=== PATIENT | male | born 1960 | race Caucasian/White ===

== ENCOUNTER 2020-07-07 10:00 | Outpatient (RCR) | payer OTHER, SELFPAY | END 2020-07-21 10:25 | disposition home or self-care (01) | LOC: HO.PTCHIC 10:00 | PROVIDERS: PCP General Practice; Visit Provider Emergency Medicine | DX: M50.00 Cervical disc disorder with myelopathy, unspecified cervical region (principal); Z87.828 Personal history of other (healed) physical injury and trauma | CPT/HCPCS: 95992; 97012; 97014; 97110; 97140; 97162 ==

== ENCOUNTER 2020-07-28 12:53 | Outpatient (REF) | payer OTHER, SELFPAY ==
--- NOTE | 2020-07-28 12:57 | CT_ITS ---
EXAMINATION: CT CERVICAL SPINE WITHOUT CONTRAST CLINICAL INFORMATION: Neck pain. Cervical disorder. COMPARISON: C-spine x-ray 01/09/2020. TECHNIQUE: Axial 3 mm thin and reformatted 2 mm thin sagittal and coronal images of cervical spine were obtained without contrast. This CT examination was performed using dose optimization techniques as appropriate, variously including the following: *Automated exposure control *Adjustment of mA and/or kV according to patient size (this includes techniques or standardized protocols for targeted exams where dose is matched to indication/reason for exam; i.e. extremities or head) *Use of iterative reconstruction technique DLP: 409 mGy-cm FINDINGS: On sagittal reconstructed images there is maintained cervical lordosis. There is loss of C3-C4, C4-C5, C5-C6 and C6-C7 disc heights with mild posterior cervical spondylosis at C3-C4 and C6-C7 disc levels. The vertebral heights and alignment are normal. The craniovertebral and C1-C2 alignment is normal. No visible acute fracture, dislocation or subluxation seen. The C2-C3 disc level is unremarkable. At C3-C4 disc level there is mild right uncovertebral hypertrophic change narrowing the neural foramina. The left neural foramina is patent. There is mild posterior spondylosis with mild spinal canal stenosis. At C4-C5 disc level there is posterior spondylosis/bulge complex resulting in mild spinal canal stenosis. There is mild left neural foramina narrowing from uncovertebral hypertrophic change. The right neural foramina is patent. At C5-C6 disc level there is mild posterior spondylosis without disc herniation or spinal stenosis. The neural foramina are patent. At C6-C7 disc level there is mild posterior spondylosis with mild AP canal stenosis. The neural foramina are moderately narrowed from bilateral uncovertebral hypertrophic changes. The C7-T1 disc level is unremarkable. There is no lytic or sclerotic process seen. The paravertebral soft tissues are normal. There is emphysema with small bilateral apical bullae. Thyroid lobes are symmetrical and normal. The central trachea is widely patent. No abnormal-sized neck lymph node or mass seen. CT/CT cervical spine wo con IMPRESSION: Degenerative disc changes with spondylosis C3-C4 through C6-C7 disc levels. Mild spinal canal stenosis C4-C5 and C6-C7 disc levels from combination of disc bulge/complex. Mild neural foraminal narrowing from uncovertebral hypertrophic changes as described above.
== END 2020-07-28 12:54 | disposition home or self-care (01) ==
LOC: HO.CT 12:53
PROVIDERS: Visit Provider General Practice
DX: M50.00 Cervical disc disorder with myelopathy, unspecified cervical region (principal)
CPT/HCPCS: 72125

== ENCOUNTER → 2020-09-03 09:30 | Outpatient (REF) | payer OTHER, SELFPAY ==
--- NOTE | 2020-09-03 09:30 | CA_ITS ---
Transthoracic Echocardiogram Patient (Last, First, Middle): Ld Workman J Gender: Male Date of : 1960 Age: 60 Procedure Date: 09/03/2020 Procedure Type: Transthoracic Echocardiogram Location: OP Height: 185.42 cm Weight: 70.31 kg BSA: 1.93 m2 Heart Rate: bpm BP: 130 / 80 mmHg Auto Body Mechanic: OSMANY Referring MD: Jericho Ribeiro MD Symptoms: I35.1 NONRHEUMATIC AV INSUFF Study Quality: Good Conclusions: - Normal left ventricular size and systolic function. - Normal right ventricular cavity size and systolic function. - There is mild aortic valve stenosis. There is mild to moderate aortic valve regurgitation. - There is mild dilatation of the ascending aorta. Findings Left Ventricle Normal left ventricular size and systolic function. There is mildly increased left ventricular wall thickness. The visually estimated ejection fraction is between 65-70%. There is no evidence of regional wall motion abnormalities. Diastolic function is normal for age. Right Ventricle Normal right ventricular cavity size and systolic function. Atria Both atria are normal in size. Aortic Valve There is moderate calcification of the aortic valve. There is moderate thickening of the aortic valve. There is mild aortic valve stenosis. There is mild to moderate aortic valve regurgitation. Mitral Valve Normal mitral valve structure and function. There is no mitral valve regurgitation. There is no mitral valve stenosis. Pulmonic Valve Normal pulmonic valve structure and function. There is trace pulmonic valve regurgitation. Tricuspid Valve Normal tricuspid valve structure and function. There is trace tricuspid valve regurgitation. Normal right atrial pressure. There is no evidence of pulmonary hypertension. Great Vessels There is mild dilatation of the ascending aorta. The visualized portions of the pulmonary artery and branches are normal. Venous The inferior vena cava is normal in size and collapses greater than 50% with inspiration. Pericardium/Pleural There is no evidence of pericardial effusion. Prior Study Comparison Changes noted compared to prior study dated: 08/06/2019. Mild present. Mild to moderate AR present. Measurements 2D Linear Measurements IVSd: 1.08 0.6-0.9/0.6-1.0 cm LVIDd: 4.61 3.9-5.3/4.2-5.9 cm LVIDs: 2.94 2.0-3.6 cm LVPWd: 1.10 0.7-1.1 cm Ao Root: 4.10 2.1-3.5 cm LV Mass: 223.56 67-162/88-224 g LVOT Diam: 2.25 3.0+(-)1.3 cm Mitral Valve MV Pk E: 0.56 MV PK A: 0.47 MV Decel Time: 265.85 E/A: 1.19 E'Lateral: 0.10 E'Medial: 0.07 Decel Coleman: 2.12 Aortic Valve AoV Pk Kofi: 1.32 AoV Mn Kofi: 0.90 AoV VTI: 0.29 AoV Pk Grad: 7.02 Aov Mn Grad: 3.70 LVOT LVOT Pk Kofi: 1.43 LVOT Mn Kofi: 0.93 LVOT VTI: 0.27 LVOT Pk Grad: 8.17 LVOT Mn Grad: 4.07 LVOT Diam: 2.25 LVOT Area: 3.97 Diastolic Function MV Pk E: 0.56 MV Pk A: 0.47 E/A: 1.19 E'Medial: 0.07 E' Laterial: 0.10 Tricuspid Valve TR Pk Kofi: 2.21 TR Pk Grad: 19.49 RA Press: 3.00 RVSP: 22.00 Great Vessels Aorta Ao Root-2D: 4.10 2.0-3.7 cm Ao Asc: 3.57 2.1-3.4 cm Updated in Other Vendor System with Status of Final Baljinder Cash MD electronically signed on 09/05/2020 4:30:25 PM with status of Final
== END ==
LOC: HO.CARD 09:30
PROVIDERS: Visit Provider Internal Medicine
DX: I35.1 Nonrheumatic aortic (valve) insufficiency (principal)
CPT/HCPCS: 93306

== ENCOUNTER → 2020-09-21 08:46 | Outpatient (BNVA) | payer OTHER, SELFPAY | PROVIDERS: PCP Nurse Practitioner Family; Visit Provider Internal Medicine | DX: I25.10 Atherosclerotic heart disease of native coronary artery without angina pectoris (principal); I35.1 Nonrheumatic aortic (valve) insufficiency | CPT/HCPCS: 93005; 99212 ==

== ENCOUNTER 2020-12-24 06:14 | Outpatient (REF) | payer OTHER, SELFPAY ==
--- NOTE | ~2020-12-24 | XR_ITS ---
EXAMINATION: XR HAND, RIGHT CLINICAL INFORMATION: Chondrocalcinosis. COMPARISON: Right hand radiographs dated 12/28/2016 and 02/18/2015. TECHNIQUE: PA, lateral, and oblique views of the right hand. An arrow points to the second metacarpophalangeal joint. FINDINGS: Mild distal interphalangeal degenerative joint changes are seen. There is no acute fracture or dislocation. Nonacute deformity is again seen in the distal aspect of the fifth metacarpal. A small osseous density seen along the radial base of the proximal phalanx of the second digit without significant change dating back to 2014. The carpal bones are normally aligned. The distal radius and ulna are intact. The soft tissues are unremarkable. XR/XR hand RT min 3V IMPRESSION: Mild distal interphalangeal degenerative joint changes suggesting osteoarthritis. No significant acute/new abnormality.
== END 2020-12-24 06:15 | disposition home or self-care (01) ==
LOC: HO.XRAY 06:14
PROVIDERS: PCP General Practice; Referring Provider General Practice; Visit Provider Emergency Medicine
DX: M11.20 Other chondrocalcinosis, unspecified site (principal); M79.641 Pain in right hand
CPT/HCPCS: 73130

== ENCOUNTER 2021-03-10 08:15 | Outpatient (REF) | payer OTHER, SELFPAY | END 2021-03-10 08:16 | disposition home or self-care (01) | LOC: HO.NEURO 08:15 | PROVIDERS: Visit Provider Emergency Medicine | DX: Z13.89 Encounter for screening for other disorder (principal) ==

== ENCOUNTER → 2021-10-27 07:09 | Outpatient (REF) | payer OTHER, SELFPAY ==
--- NOTE | 2021-10-27 07:12 | CA_ITS ---
Transthoracic Echocardiogram Patient (Last, First, Middle): Ld Workman J Gender: Male Date of : 1960 Age: 61 Procedure Date: 10/27/2021 Procedure Type: Transthoracic Echocardiogram Location: OP Height: 180.34 cm Weight: 65.77 kg BSA: 1.84 m2 Heart Rate: bpm BP: 126 / 68 mmHg Strip Polisher: PERLA Referring MD: Jericho Ribeiro MD Etcher Apprentice: Bigg Kelsey MD Symptoms: I35.1 - Nonrheumatic aortic (valve) insufficiency Study Quality: Good ECG Rhythm: Sinus Conclusions: - 1. Normal LV systolic function with mild LVH with grade 1 diastolic dysfunction 2. Mildly dilated left atrium 3. Mild aortic stenosis and [id number] aortic regurgitation 4. Normal RV systolic pressure 5. No pericardial effusion Findings Left Ventricle Normal left ventricular size, thickness, and systolic function. The visually estimated ejection fraction is between 65-70%. There is no evidence of regional wall motion abnormalities. Spectral Doppler is indicative of an impaired relaxation filling pattern. E/E prime ratio is <8, consistent with normal filling pressures. Evidence suggests grade I (mild) diastolic dysfunction. Right Ventricle Normal right ventricular cavity size and systolic function. Atria The left atrium is mildly dilated. There is no evidence of interatrial shunt. The right atrium is normal in size. Aortic Valve There is moderate calcification of the aortic valve. There is moderate thickening of the aortic valve. There is mild aortic valve stenosis. The mean gradient is 10 mmHg. There is mild to moderate aortic valve regurgitation. bicuspid aortic valve cannot be entirely ruled out Mitral Valve Normal mitral valve structure and function. There is trace mitral valve regurgitation. There is no mitral valve stenosis. Pulmonic Valve The pulmonic valve is likely normal. Tricuspid Valve Normal tricuspid valve structure. There is trace tricuspid valve regurgitation. The right ventricular systolic pressure is normal. Normal right atrial pressure. There is no evidence of pulmonary hypertension. Great Vessels All visible segments of the aorta are normal in size. The pulmonary artery was not well visualized. Venous The inferior vena cava is normal in size and collapses greater than 50% with inspiration. Pericardium/Pleural There is no evidence of pericardial effusion. Prior Study Comparison No significant change compared to prior study dated: 09/03/2020. Measurements 2D Linear Measurements IVSd: 1.06 0.6-0.9/0.6-1.0 cm LVIDd: 4.38 3.9-5.3/4.2-5.9 cm LVIDd Index: 2.38 2.4-3.2/2.2-3.1 cm/m2 LVIDs: 2.39 2.0-3.6 cm LVPWd: 1.09 0.7-1.1 cm LA Diam: 3.60 2.7-3.8/3.0-4.0 cm LAIDs Index: 1.96 1.5-2.3 cm/m2 LV Mass: 202.19 67-162/88-224 g LV Mass Index: 109.89 43-95/49-115 g/m2 LVOT Diam: 2.20 3.0+(-)1.3 cm 2D Systolic Function EF 4C: 67.80 >55% EF 2C: 69.40 >55% EF BiP: 66.80 >55% Mitral Valve MV Pk E: 0.60 MV PK A: 0.65 MV Decel Time: 286.00 E/A: 0.90 E'Lateral: 11.40 E'Medial: 7.07 E/E' Med: 8.50 E/E' Lat: 5.30 PHT: 84.00 MVA PHT: 2.62 Decel [place]: 2.09 Aortic Valve AoV Pk Kofi: 2.18 AoV Mn Kofi: 1.43 AoV VTI: 0.48 AoV Pk Grad: 19.00 Aov Mn Grad: 10.00 CHANI Cont.VTI: 2.22 AI Pk Kofi: 4.62 AI [place]: 2.19 LVOT LVOT Pk Kofi: 1.22 LVOT Mn Kofi: 0.84 LVOT VTI: 0.28 LVOT Pk Grad: 6.00 LVOT Mn Grad: 3.00 LVOT Diam: 2.20 LVOT Area: 3.80 Diastolic Function MV Pk E: 0.60 MV Pk A: 0.65 E/A: 0.90 E'Medial: 7.07 E/E' Med: 8.50 E' Laterial: 11.40 E/E' Lat: 5.30 Right Ventricle TAPSE (mm): 2.50 TVS' Kofi: 14.30 Tricuspid Valve TR Pk Kofi: 1.64 TR Pk Grad: 11.00 RA Press: 3.00 RVSP: 14.00 Great Vessels Aorta Sinus of Valsalva: 3.74 2.0-3.[address] [place]: 3.03 1.7-3.4 cm Ao Asc: 3.60 2.1-3.4 cm Updated in Other Vendor System with Status of Final Bigg Kelsey MD electronically signed on 10/28/2021 2:44:27 PM with status of Final
== END ==
LOC: HO.CARD 07:09
PROVIDERS: PCP Family Medicine; Visit Provider Internal Medicine
DX: I35.1 Nonrheumatic aortic (valve) insufficiency (principal)
CPT/HCPCS: 93306

== ENCOUNTER → 2021-11-22 13:53 | Outpatient (BNVA) | payer OTHER, SELFPAY | PROVIDERS: PCP Family Medicine; Referring Provider Family Medicine; Visit Provider Internal Medicine | DX: I25.10 Atherosclerotic heart disease of native coronary artery without angina pectoris (principal); I35.1 Nonrheumatic aortic (valve) insufficiency; I35.0 Nonrheumatic aortic (valve) stenosis | CPT/HCPCS: 93005; 99212 ==

== ENCOUNTER 2022-03-27 09:00 | Outpatient (RCR) | payer OTHER, SELFPAY | END 2022-03-27 15:40 | disposition home or self-care (01) | LOC: HO.OT 09:00 | PROVIDERS: Visit Provider Physician Assistant | DX: G56.02 Carpal tunnel syndrome, left upper limb (principal) | CPT/HCPCS: 97035; 97110; 97140; 97166 ==

== ENCOUNTER 2022-04-27 14:27 | Outpatient (REF) | payer OTHER, SELFPAY ==
--- NOTE | ~2022-04-27 | US_ITS ---
EXAMINATION: US VENOUS ULTRASOUND WITH DOPPLER LOWER EXTREMITY, RIGHT CLINICAL INFORMATION: Right lower extremity pain. COMPARISON: None TECHNIQUE: Ultrasound of the deep veins is performed from the hip to the calf with compression sonography and color and pulse Doppler assessment. Spectral analysis with color-flow imaging is performed. FINDINGS: There is normal venous compression and respiratory variation and augmented flow. The visualized common femoral vein, superficial femoral vein, profunda femoral vein, popliteal vein, and the trifurcation region shows no evidence of deep venous thrombosis. There is no significant popliteal fossa cyst. No focal abnormality identified in the region of concern of the posterior calf. If the patient's symptoms persist, followup ultrasound in 5 days 7 days might be of value to exclude proximal propagation from a non-visualized calf vein. US/US venous duplex LE RT IMPRESSION: No DVT demonstrated in the right lower extremity.
--- NOTE | ~2022-04-27 | XR_ITS ---
EXAMINATION: XR KNEE, RIGHT CLINICAL INFORMATION: Pain. COMPARISON: None TECHNIQUE: AP, lateral and sunrise views of the right knee are submitted. FINDINGS: There is mild bony demineralization. There is very mild asymmetric narrowing of the medial joint space compartment, with minimal peripheral osteophyte formation. The lateral and patellofemoral joint space compartments are well-maintained. No varus or valgus configuration is seen. No fracture, dislocation or significant joint effusion is seen. A small degenerative calcification is seen of the patellar tendon insertion. No foreign body is seen. There are mild femoral, popliteal and infrapopliteal atherosclerotic calcifications. XR/XR knee RT 3V IMPRESSION: There is very mild osteoarthritic change of the medial joint space compartment of the right knee. No significant varus or valgus configuration is noted.
== END 2022-04-27 14:28 | disposition home or self-care (01) ==
LOC: HO.US 14:27
PROVIDERS: Absent Provider Family Medicine; PCP Family Medicine; Visit Provider Emergency Medicine
DX: M79.661 Pain in right lower leg (principal); M25.561 Pain in right knee
CPT/HCPCS: 73562; 93971

== ENCOUNTER 2022-05-30 | Outpatient (REF) | payer OTHER, MEDICAID, SELFPAY ==
--- NOTE | ~2022-05-30 | XR_ITS ---
EXAMINATION: XR KNEE AP STANDING CLINICAL INFORMATION: Knee pain. COMPARISON: None TECHNIQUE: AP bilateral standing view of the knees was obtained. [place] view of the right patella was obtained as well. XR/XR knee standing BI FINDINGS/IMPRESSION: On the left, chondrocalcinosis is seen. There are mild degenerative changes involving the medial compartment, with joint space narrowing, sclerosis, and mild osteophyte formation. On the right, mild joint space narrowing involves the medial compartment. [place] view on the right appears unremarkable. No fracture or dislocation is seen. Bony mineralization appears preserved. No lytic or sclerotic bony lesion is appreciated.
--- NOTE | ~2022-05-30 | XR_ITS ---
EXAMINATION: XR KNEE AP STANDING CLINICAL INFORMATION: Knee pain. COMPARISON: None TECHNIQUE: AP bilateral standing view of the knees was obtained. [place] view of the right patella was obtained as well. XR/XR knee RT 1V FINDINGS/IMPRESSION: On the left, chondrocalcinosis is seen. There are mild degenerative changes involving the medial compartment, with joint space narrowing, sclerosis, and mild osteophyte formation. On the right, mild joint space narrowing involves the medial compartment. [place] view on the right appears unremarkable. No fracture or dislocation is seen. Bony mineralization appears preserved. No lytic or sclerotic bony lesion is appreciated.
== END 2022-05-30 00:01 | disposition home or self-care (01) ==
LOC: HO.HOSX
PROVIDERS: Visit Provider Physician Assistant
DX: M23.91 Unspecified internal derangement of right knee (principal)
CPT/HCPCS: 73560; 73565; 99202

== ENCOUNTER 2022-06-14 13:00 | Outpatient (RCR) | payer OTHER, SELFPAY ==
--- NOTE | 2022-06-07 09:46 | MHC.PT.EP ---
[facility] [place] Office [place] Office [place] Office [address] [phone] F: [phone] F: [phone] F: [phone] F: [phone] Physical Therapy Plan of Care Date of Evaluation: Date of Surgery: none Diagnosis: Internal derangement of R knee. Assessment: Patient is a 62 year old R handed male who presents with s/s consistent with R knee pain after a pop while squatting 1 month ago. 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 Patient past medical history includes stent placement. Current impairments include pain, posture, ROM, strength, activity tolerance, flexibility, and functional mobility. Functional limitations include decreased ability to squat, kneel and negotiate stairs. Patient is motivated with good rehab potential. Skilled PT will address impairments and functional limitations in order to achieve goals. Frequency and Duration: The patient will be seen 2x/week for 5 weeks Short Term Goals: I with HEP - 2 weeks Full pain free AROM - 3 weeks Quad set normal - 3 weeks Manager Rn Goals: Strength 4+/5 flex/ext - 5 weeks LEFS 66/80 - 5 weeks HS 90/90 lacking <20 b/l. Treatment Plan: Modalities to reduce pain, spasms and effusion. Manual therapy to restore motion and function. Therapeutic exercise to improve strength and flexibility. Neuromuscular re-education for posture and balance. Therapeutic activities to return to functional activities of daily living. Electronically signed by: Tru Eng PT Please sign and return to therapist. Thank you for your referral.
--- NOTE | 2022-09-01 08:40 | MHC.PT.DC ---
[facility] [place] Office [place] Office [place] Office [address] [place] [address] [phone] F: [phone] F: [phone] F: [phone] F: [phone] Physical Therapy Discharge Report Diagnosis: Internal derangement of R knee. Date of Surgery: none Date of Evaluation: 06/07/22 Date of Discharge: 07/03/22 Treatments to Date: 2 Cancellations to Date: No Shows to Date: Discharge Status: Patient Elected to Stop Discharge Summary: Pt with increased discomfort since trying HEP. notes back and L knee pain as well. we discussed HEP and decided to hold on HEP until next visit where we will assess presentation and attempt to pursue goals with alternative methods. Patient is a 62 year old R handed male who presents with s/s consistent with R knee pain after a pop while squatting 1 month ago. 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 Patient past medical history includes stent placement. Current impairments include pain, posture, ROM, strength, activity tolerance, flexibility, and functional mobility. Functional limitations include decreased ability to squat, kneel and negotiate stairs. Patient is motivated with good rehab potential. Skilled PT will address impairments and functional limitations in order to achieve goals. Electronically signed by: Tru Eng, PT Please sign and return to therapist. Thank you for your referral.
== END 2022-09-01 08:40 | disposition home or self-care (01) ==
LOC: HO.PTCHIC 13:00
PROVIDERS: PCP Family Medicine; Visit Provider Physician Assistant
DX: M23.91 Unspecified internal derangement of right knee (principal)
CPT/HCPCS: 97110; 97161

== ENCOUNTER 2023-01-12 10:30 | Outpatient (AMB) | payer OTHER, SELFPAY ==
--- NOTE | 2023-01-12 10:35 | A.OFFVIS_ITS ---
Intake Vital Signs 01/12/23 10:35 01/12/23 10:37 Height 6 ft 6 ft Weight 135 lb 12.876 oz BMI 18.4 BP 120/60 Blood Pressure Location Lt brachial Position Sitting Pulse 65 Intake Visit Reasons: 1 year follow up Intake Note: 1 year follow up Web User Experience Strategist Required: No Accompanied by: Self / Same As Patient Allergies No Known Allergies [No Known Allergies*] Allergy (Verified 01/12/23 10:39) Medication List - Last Reconciled 01/12/23 by Jericho Ribeiro MD aspirin 81 mg PO DAILY atorvastatin 80 mg PO DAILY celecoxib 200 mg PO DAILY famotidine 40 mg PO DAILY metoprolol tartrate 25 mg PO BID aosxomackyie-udoq-gfceu acid 18-400 mg-mcg (Certavite-Antioxidant) 0 tabs PO nitroglycerin 0 mg sublingual HPI HPI Comments History of Present Illness Details Ld returns for follow-up regarding coronary disease and aortic regurgitation. To recall, he has a history of inferior STEMI from 2011. He received bare metal stent to the mid circumflex. Overall, doing good. No specific complaints. No angina absolutely. [facility] Medical History Atherosclerotic cardiovascular disease Non-rheumatic aortic stenosis Nonrheumatic aortic valve regurgitation Personal history of nicotine dependence ST elevation myocardial infarction (STEMI) of inferior wall Surgical History History of foot surgery (~10/2013) History of heart artery stent (~04/2012) History of left inguinal hernia repair (~03/2016) History of right inguinal hernia repair (~04/2015) Family History Father CVD (cardiovascular disease) Mother CVD (cardiovascular disease) Social History Patient Tobacco Use Status: Former Tobacco user Review of Systems Const Denies weakness ENT Denies dizziness Card Denies chest pain, Denies chest pain with activity, Denies syncope, Denies rapid heart rate, Denies pedal edema, Denies edema, Denies leg edema, Denies lightheadedness, Denies palpitations, Denies dyspnea, Denies dyspnea on exertion and Denies orthopnea Resp Denies cough, Denies dyspnea and Denies dyspnea on exertion GI Denies hematochezia and Denies change in stool character Musc Denies abnormal gait, Denies muscle cramps, Denies muscle weakness, Denies numbness, Denies radiating pain into limb and Denies tingling Neuro Denies abnormal gait, Denies dizziness, Denies syncope, Denies numbness, Denies tingling and Denies weakness Endo Denies palpitations Physical Exam Vital Signs: Last Vital Signs Pulse 65 01/12/23 10:37 BP 120/60 01/12/23 10:37 BMI result Body Mass Index 18.4 Const General: comfortable and no acute distress Orientation/consciousness: patient oriented x3 HEENT Other: Unremarkable Head: Yes normal to inspection Neck Neck: Yes normal visual inspection Chest Chest palpation & inspection: normal inspection of the chest Resp Auscultation: clear to auscultation bilaterally Cardio Palpation: normal PMI Heart sounds: S1 normal heart sound present, S2 normal heart sound present, no gallops, Murmur heart sound present systolic II/ and at the apex and no rubs GI Palpation (GI): Soft to palpation Back/Spine/Pelvis Other: unremarkable Skin General skin exam: no rashes or lesions noted Neuro General: patient oriented x3 Extrem General: Yes normal to inspection Psych Mental Status: mental status grossly normal Office Procedures EKG Details: EKG with sinus rhythm at 65/Min; no significant ST-T changes and otherwise unremarkable. [place]. [id number], Complete Assessment & Plan Assessment & Plan (1) Atherosclerotic cardiovascular disease: Code(s): I25.10 - Atherosclerotic heart disease of nome coronary artery without angina pectoris Plan: Continue aspirin, metoprolol, and statins. Need to request last lipids from PCP. In the past it was quite controlled and LDL 45 mg/dL; triglycerides 36 mg/dL. (2) Nonrheumatic aortic valve regurgitation: Code(s): I35.1 - Nonrheumatic aortic (valve) insufficiency Plan: Echocardiogram with vocz-qc-ekfpoutc aortic regurgitation. Monitor perio dically. (3) Non-rheumatic aortic stenosis: Code(s): I35.0 - Nonrheumatic aortic (valve) stenosis Plan: In the last echocardiogram, could not exclude bicuspid aortic valve. There was moderate thickening of the valve. Mean gradient across the aortic valve was 10 mm Hg and thought to have mild stenosis. Ascending aortic size was 3.6 cm. We can monitor this periodically. Coding Level of Care Code Est Pt Level 3 (64146) Diagnoses Atherosclerotic cardiovascular disease I25.10 Nonrheumatic aortic valve regurgitation I35.1 Non-rheumatic aortic stenosis I35.0 CPT Codes EKG - CPT: 82001-[id number], Complete ([id number])
[2023-01-12 10:37] VITALS: BP 120/60; PULSE 65; BMI 18.4
== END 2023-01-12 11:05 | disposition home or self-care (01) ==
PROVIDERS: PCP Family Medicine; Visit Provider Internal Medicine
DX: I25.10 Atherosclerotic heart disease of native coronary artery without angina pectoris (principal); I35.1 Nonrheumatic aortic (valve) insufficiency; I35.0 Nonrheumatic aortic (valve) stenosis
CPT/HCPCS: 93010; 99213

== ENCOUNTER → 2023-01-12 10:30 | Outpatient (BNVA) | payer OTHER, SELFPAY | PROVIDERS: PCP Family Medicine; Visit Provider Internal Medicine | DX: I25.10 Atherosclerotic heart disease of native coronary artery without angina pectoris (principal); I35.0 Nonrheumatic aortic (valve) stenosis; I35.1 Nonrheumatic aortic (valve) insufficiency; Z79.82 Long term (current) use of aspirin; Z79.899 Other long term (current) drug therapy | CPT/HCPCS: 93005; 99212 ==

== ENCOUNTER 2023-08-14 09:53 | Outpatient (REF) | payer OTHER, SELFPAY ==
--- NOTE | ~2023-08-14 | XR_ITS ---
EXAMINATION: XR KNEE, LEFT CLINICAL INFORMATION: Left knee pain and edema for 5 years. COMPARISON: 05/30/2022 TECHNIQUE: Five views of the left knee. FINDINGS: Mild medial joint space narrowing. Moderate joint effusion. Tiny medial marginal and posterior patellar osteophytes. Chondrocalcinosis in the lateral compartment and possibly minimally in the medial compartment. XR/XR knee LT 4V IMPRESSION: Moderate joint effusion. Mild degenerative changes.
== END 2023-08-14 09:54 | disposition home or self-care (01) ==
LOC: HO.HHCX 09:53
PROVIDERS: Visit Provider Internal Medicine
DX: M17.12 Unilateral primary osteoarthritis, left knee (principal)
CPT/HCPCS: 73564

== ENCOUNTER 2023-10-12 07:00 | Outpatient (REF) | payer OTHER, SELFPAY ==
--- NOTE | ~2023-10-12 | CT_ITS ---
EXAMINATION: CT KNEE WITHOUT CONTRAST, LEFT CLINICAL INFORMATION: Severe medial knee pain. COMPARISON: X-ray 08/14/2023. TECHNIQUE: Axial imaging. Sagittal and coronal reconstructions. This CT examination was performed using dose optimization techniques as appropriate, variously including the following: *Automated exposure control *Adjustment of mA and/or kV according to patient size (this includes techniques or standardized protocols for targeted exams where dose is matched to indication/reason for exam; i.e. extremities or head) *Use of iterative reconstruction technique DLP: 155 mGy-cm FINDINGS: Alignment is anatomic. Mild-moderate medial compartment joint space narrowing, marginal osteophytes, sclerosis. Tiny marginal patellar spurs. Chondrocalcinosis in the lateral compartment. Small calcifications in the medial compartment adjacent to the femoral condyle, could reflect chondrocalcinosis or loose bodies. Small sclerotic focus in the distal femoral metaphysis, appears nonaggressive, probable bone island. No evidence of acute fracture. Small effusion. Quadriceps and patellar tendon grossly appear intact. The ligaments, intra-articular soft tissues are not reliably evaluated. No gross muscle tear is seen, evaluation limited by CT. There is subcutaneous edema anteriorly. CT/CT knee LT wo IV con IMPRESSION: Mild-moderate medial compartment arthritis. Chondrocalcinosis/loose bodies. No CT evidence of acute fracture or malalignment. Small effusion. Consider MRI evaluation if there is clinical concern for radiographically occult osseous injury, intra-articular derangement.
== END 2023-10-12 07:01 | disposition home or self-care (01) ==
LOC: HO.CT 07:00
PROVIDERS: PCP Family Medicine; Visit Provider Family Medicine
DX: M25.562 Pain in left knee (principal); G89.29 Other chronic pain
CPT/HCPCS: 73700

== ENCOUNTER 2023-10-25 09:16 | Outpatient (REF) | payer OTHER, SELFPAY ==
--- NOTE | ~2023-10-25 | XR_ITS ---
EXAMINATION: XR KNEE AP STANDING CLINICAL INFORMATION: Pain in unspecified knee. COMPARISON: None available. TECHNIQUE: AP bilateral standing view of the knees was obtained. FINDINGS: The bones are diffusely demineralized. Yfiogsvn-bq-oryupt narrowing of the medial compartment of bilateral knees, left greater than right. Small medial marginal osteophytes. Possible faint chondrocalcinosis in the lateral compartment of the left knee. XR/XR knee standing BI IMPRESSION: 1. Yqummwyp-jv-sbrjbn narrowing of the medial compartment of bilateral knees, left greater than right.
== END 2023-10-25 09:17 | disposition home or self-care (01) ==
LOC: HO.HOSX 09:16
PROVIDERS: Visit Provider Physician Assistant
DX: M17.12 Unilateral primary osteoarthritis, left knee (principal)
CPT/HCPCS: 73565; 99212

== ENCOUNTER 2023-10-25 11:52 | Outpatient (AMB) | payer OTHER, SELFPAY ==
--- NOTE | 2023-10-25 12:27 | A.OFFVIS_ITS ---
Intake Visit Reasons: New Problem Left knee pain Intake Note: Ld is a 64 year old male who presents today for a evaluation of his left knee pain. Patient reports his pain started about 3 months ago. Hx of 2 surgeries when he was a kid for torn cartilage. He expresses that his pain is worse when he is bending his knee. Patient reveals when he bends his knee he feels a pulling sensation on his thigh. Patient doesn't find relief when he takes Tylenol. Allergies No Known Allergies [No Known Allergies*] Allergy (Verified 10/25/23 12:34) HPI HPI New Problem Left knee pain: Details: 63-year-old male who presents in the office today for an evaluation of left knee pain. Patient reports his pain began about 3 months ago. Claims to have an increase in pain when bending his left knee. Reports a pulling sensation in his left thigh when bending the knee. Confirms the use of Tylenol but does not get relief. Patient states the top and back of the knee feels like it is pulling. He reports edema and that it feels squishy. Confirms increased pain with walking up stairs. He confirms taking Celebrex 200 mg PO daily. Patient has a history of 2 surgeries as a child for torn cartilage. Patient denies kidney complications. [facility] Medical History Atherosclerotic cardiovascular disease Non-rheumatic aortic stenosis Nonrheumatic aortic valve regurgitation Personal history of nicotine dependence ST elevation myocardial infarction (STEMI) of inferior wall Surgical History History of foot surgery (~10/2013) History of heart artery stent (~04/2012) History of left inguinal hernia repair (~03/2016) History of right inguinal hernia repair (~04/2015) Family History Father CVD (cardiovascular disease) Mother CVD (cardiovascular disease) Social History (Updated 10/25/23 @ 12:36 by Lai De La Vega) Patient Tobacco Use Status: Former Tobacco user Current occupational status: retired Review of Systems Const All systems reviewed & are unremarkable except as noted in HPI and below Physical Exam Const General: cooperative, healthy appearing and no acute distress Resp Effort & Inspection: normal respiratory effort and able to speak in complete sentences Cardio Rate: regular rate Peripheral pulses: Peripheral pulses 2+ throughout GI Palpation (GI): Soft to palpation Skin Lesions: no lesions Rashes: no rashes Extrem Other: Left knee: Normal to inspection. No ecchymosis, erythema, or joint effusion. No tenderness to palpation along the lateral joint line. Tenderness to palpation along the medial joint line. Full knee extension and flexion. Crepitus felt with ROM. Negative Nilo's. Negative anterior drawer. NVI. Assessment & Plan Assessment & Plan (1) Osteoarthritis of left knee: Code(s): M17.12 - Unilateral primary osteoarthritis, left knee Category: Medical Qualifiers: Osteoarthritis type: unspecified Qualified Code(s): M17.12 - Unilateral primary osteoarthritis, left knee Plan Mr. Workman is a 63-year-old male who presents in the office today for an evaluation of left knee pain. Patient reports his pain began about 3 months ago. Claims to have an increase in pain when bending his left knee. Reports a pulling sensation in his left thigh when bending the knee. Confirms the use of Tylenol but does not get relief. Patient states the top and back of the knee feels like it is pulling. He reports edema and that it feels squishy. Confirms increased pain with walking up stairs. He confirms taking Celebrex 200 mg PO daily. Patient has a history of 2 surgeries as a child for torn cartilage. Patient denies kidney complications. Discussed the role of oral anti-inflammatory or cortisone injections. At this time the patient states he is not interested in the cortisone injection due to a phobia of needles. I will send in a prescription for Celebrex 200 mg PO twice daily. He will be placed in a genumed knee brace, off the shelf. Follow up will be PRN, or sooner if needed. X-rays of the left knee which were obtained while in the office today and were reviewed by me, Ethel Cruz PA-C, revealed no acute fracture or dislocation. Osteoarthritis noted. Orders: Orders XR knee standing BI Today M25.569 - Pain in unspecified knee Medications: New celecoxib (Celebrex) 200 mg PO BID 60 caps 0RF 30 days Patient Instructions: Scribed by Judith Hernandes medical record transcriber, for Ethel Cruz PA-C on 10/25/2023 at 12:02 pm, EST. Coding Level of Care Code Est Pt Level 3 (21245) Diagnoses Osteoarthritis of left knee, unspecified osteoarthritis type M17.12 Osteoarthritis type: unspecified
== END 2023-10-25 14:00 | disposition home or self-care (01) ==
PROVIDERS: PCP Family Medicine; Visit Provider Physician Assistant
DX: M17.12 Unilateral primary osteoarthritis, left knee (principal)
CPT/HCPCS: 99214

== ENCOUNTER 2023-11-26 09:30 | Outpatient (AMB) | payer OTHER, SELFPAY ==
--- NOTE | 2023-11-26 10:01 | A.OFFVIS_ITS ---
Intake Visit Reasons: ov- left knee OA Intake Note: Ld is a 63 year old male who presents today for a cortisone injection for his left knee. Allergies No Known Allergies [No Known Allergies*] Allergy (Verified 10/25/23 12:34) HPI HPI ov- left knee OA: Details: 63-year-old male who presents in the office today for a follow up of left knee pain. I last saw the patient on 10/25/2023 when we discussed the role of anti- inflammatory medication versus cortisone injections. A prescription of Celebrex 200 mg PO BID was sent to the pharmacy. While in the office today the patient would like a cortisone injection in the left knee. [facility] Medical History Atherosclerotic cardiovascular disease Non-rheumatic aortic stenosis Nonrheumatic aortic valve regurgitation Personal history of nicotine dependence ST elevation myocardial infarction (STEMI) of inferior wall Surgical History History of foot surgery (~10/2013) History of heart artery stent (~04/2012) History of left inguinal hernia repair (~03/2016) History of right inguinal hernia repair (~04/2015) Family History Father CVD (cardiovascular disease) Mother CVD (cardiovascular disease) Social History (Updated 10/25/23 @ 12:36 by Lai De La Vega) Patient Tobacco Use Status: Former Tobacco user Current occupational status: retired Review of Systems Const All systems reviewed & are unremarkable except as noted in HPI and below Physical Exam Const General: cooperative, healthy appearing and no acute distress Resp Effort & Inspection: normal respiratory effort and able to speak in complete sentences Cardio Rate: regular rate Peripheral pulses: Peripheral pulses 2+ throughout GI Palpation (GI): Soft to palpation Skin Lesions: no lesions Rashes: no rashes Extrem Other: Left knee: Normal to inspection. No ecchymosis, erythema, or joint effusion. No tenderness to palpation along the lateral joint line. Tenderness to palpation along the medial joint line. Full knee extension and flexion. Crepitus felt with ROM. Negative Nilo's. Negative anterior drawer. NVI. Office Procedures Joint Injection/Drain Joint Injection/Drain Primary Site: left knee Prep: site was prepped using aseptic technique, ethochloride spray was applied and injection warnings given Injected: 80 mg of, DepoMedrol, with 8 mL of (2% plain lido ) and in the joint Procedure: The patient tolerated the procedure well, but had some pain with the injection and there was some relief with the local anesthesia Coding 36035 - Large joint Procedure code (CPT) selection complete Assessment & Plan Assessment & Plan (1) Osteoarthritis of left knee: Code(s): M17.12 - Unilateral primary osteoarthritis, left knee Category: Medical Qualifiers: Osteoarthritis type: unspecified Qualified Code(s): M17.12 - Unilateral primary osteoarthritis, left knee Plan Mr. Workman is a 63-year-old male who presents in the office today for a follow up of left knee pain. I last saw the patient on 10/25/2023 when we discussed the role of anti-inflammatory medication versus cortisone injections. A prescription of Celebrex 200 mg PO BID was sent to the pharmacy. While in the office today the patient would like a cortisone injection in the left knee. The patient was offered a cortisone injection in the left knee with 80 mg of DepoMedrol. The patient was explained the risk, benefits, and alternatives to receiving this injection. After receiving consent for the injection, the patient had the procedure done while in the office today. The patient tolerated the procedure well with no complications. Follow up will be PRN, or sooner if needed. Patient Instructions: Scribed by Judith Hernandes medical information specialist, for Ethel Cruz PA-C on 11/26/2023 at 9:44 am, EST. Coding Level of Care Code Est Pt Level 3 (36092) Diagnoses Osteoarthritis of left knee, unspecified osteoarthritis type M17.12 Osteoarthritis type: unspecified CPT Codes Coding - Large joint: 15430 - Large joint ([id number])
== END 2023-11-26 10:05 | disposition home or self-care (01) ==
PROVIDERS: PCP Family Medicine; Visit Provider Physician Assistant
DX: M17.12 Unilateral primary osteoarthritis, left knee (principal)
CPT/HCPCS: 20610

== ENCOUNTER → 2023-11-26 09:30 | Outpatient (BNVA) | payer OTHER, SELFPAY | PROVIDERS: PCP Family Medicine; Visit Provider Physician Assistant | DX: M17.12 Unilateral primary osteoarthritis, left knee (principal) | CPT/HCPCS: 20610; J1010 ==

== ENCOUNTER 2023-12-19 09:00 | Outpatient (RCR) | payer OTHER, SELFPAY | END 2023-12-19 09:24 | disposition home or self-care (01) | LOC: HO.OT 09:00 | PROVIDERS: PCP Family Medicine; Visit Provider Physician Assistant | DX: M25.531 Pain in right wrist (principal) | CPT/HCPCS: 97035; 97110; 97112; 97140; 97165 ==

== ENCOUNTER 2024-01-08 13:04 | Outpatient (AMB) | payer OTHER, SELFPAY ==
--- NOTE | 2024-01-08 13:12 | MHC.OFFVIS ---
Intake Visit Reasons: OV - left knee OA, last inj 11/26/23 Intake Note: Ld is a 63 year old male who presents today for a follow up of his left knee OA, last injection 11/26/23. Patient reports his last injection gave him about a few days of relief. He states he is having a lot of pain and he is thinking about a knee replacement. He expresses that his pain is all around his knee and it is getting worse. Allergies No Known Allergies [No Known Allergies*] Allergy (Verified 01/08/24 13:14) HPI HPI OV - left knee OA, last inj 11/26/23: Details: 63-year-old male who presents in the office today for a follow up of left knee osteoarthritis. I last saw the patient in the office on 11/26/2023 when he was given a cortisone injection in the left knee. ? ? While in the office today, the patient reports his last cortisone injection gave him a few days of relief. He confirms having ?a lot? of pain. This increases with excessive ambulating and the use of stairs.?He states he is interested in a left total knee arthroplasty but is concerned about being put to sleep. Patient reports the pain on the back and top of the knee accompanied by intermittent edema. He states after 20 minutes he has severe pain in the left knee. He states this pain is affecting his daily activities. He denies having relief with Tylenol and celebrex. ?He confirms the use of a brace with no relief.? ? Patient confirms prior left knee arthroscopy by Dr. Veloz when he was 18.? [facility] Medical History Atherosclerotic cardiovascular disease Non-rheumatic aortic stenosis Nonrheumatic aortic valve regurgitation Personal history of nicotine dependence ST elevation myocardial infarction (STEMI) of inferior wall Surgical History History of foot surgery (~10/2013) History of heart artery stent (~04/2012) History of left inguinal hernia repair (~03/2016) History of right inguinal hernia repair (~04/2015) Family History Father CVD (cardiovascular disease) Mother CVD (cardiovascular disease) Social History Patient Tobacco Use Status: Former Tobacco user Current occupational status: retired Review of Systems Const All systems reviewed & are unremarkable except as noted in HPI and below Physical Exam Const General: cooperative, healthy appearing and no acute distress Resp Effort & Inspection: normal respiratory effort and able to speak in complete sentences Cardio Rate: regular rate Peripheral pulses: Peripheral pulses 2+ throughout GI Palpation (GI): Soft to palpation Skin Lesions: no lesions Rashes: no rashes Extrem Other: Left knee: Normal to inspection. No ecchymosis, erythema, or joint effusion. Tenderness to palpation along the medial and lateral joint lines. Full knee extension and flexion. Crepitus felt with ROM. Negative Nilo's. Negative anterior drawer. NVI. Assessment & Plan Assessment & Plan (1) Osteoarthritis of left knee: Code(s): M17.12 - Unilateral primary osteoarthritis, left knee Category: Medical Qualifiers: Osteoarthritis type: unspecified Qualified Code(s): M17.12 - Unilateral primary osteoarthritis, left knee Plan Mr. Workman is a 63-year-old male who presents in the office today for a follow up of left knee osteoarthritis. I last saw the patient in the office on 11/26/2023 when he was given a cortisone injection in the left knee. ? ? While in the office today, the patient reports his last cortisone injection gave him a few days of relief. He confirms having ?a lot? of pain. This increases with excessive ambulating and the use of stairs.?He states he is interested in a left total knee arthroplasty but is concerned about being put to sleep. Patient reports the pain on the back and top of the knee accompanied by intermittent edema. He states after 20 minutes he has severe pain in the left knee. He states this pain is affecting his daily activities. He denies having relief with Tylenol and celebrex. He confirms the use of a brace with no relief.? ? Patient confirms prior left knee arthroscopy by Dr. Veloz when he was 18.? ? The patient will be referred for an urgent MRI. He is requesting to only have his leg in the machine due to being claustrophobic. The patient was given my card to call the office once the MRI is obtained. A one-time prescription was sent to the pharmacy, [facility], for tramadol 50 mg PO Q8H PRN for pain. Follow-up will be after the MRI is obtained, or sooner if needed. ? Orders: Orders MR knee LT wo con 01/08/24 M17.12 - Unilateral primary osteoarthritis, left knee Medications: New tramadol 50 mg PO Q8H PRN 42 tabs 0RF pain Patient Instructions: Scribed by Judith Hernandes medical practitioners, for Ethel Cruz PA-C on 01/08/2024 at 1:12 pm, EST.? Coding Level of Care Code Est Pt Level 4 (79433) Diagnoses Osteoarthritis of left knee, unspecified osteoarthritis type M17.12 Osteoarthritis type: unspecified
== END 2024-01-08 15:45 | disposition home or self-care (01) ==
PROVIDERS: PCP Family Medicine; Visit Provider Physician Assistant
DX: M17.12 Unilateral primary osteoarthritis, left knee (principal)
CPT/HCPCS: 99214

== ENCOUNTER → 2024-01-08 13:04 | Outpatient (BNVA) | payer OTHER, SELFPAY | PROVIDERS: PCP Family Medicine; Visit Provider Physician Assistant | DX: M17.12 Unilateral primary osteoarthritis, left knee (principal) | CPT/HCPCS: 99212 ==

== ENCOUNTER 2024-01-29 13:01 | Outpatient (AMB) | payer OTHER, SELFPAY ==
--- NOTE | 2024-01-29 13:02 | A.OFFVIS_ITS ---
Vital Signs 01/29/24 13:03 Height 6 ft Weight 134 lb 7.712 oz BMI 18.2 BP 126/62 Blood Pressure Location Lt brachial Position Sitting Pulse 56 Intake Visit Reasons: 1 year follow up Customer Support Assistant Required: No Accompanied by: Self / Same As Patient Allergies No Known Allergies [No Known Allergies*] Allergy (Verified 01/08/24 13:14) Medication List - Last Reconciled 01/29/24 by Jericho Ribeiro MD acetaminophen ER (Tylenol Arthritis Pain) 650 mg PO Q12H aspirin 81 mg PO DAILY atorvastatin 80 mg PO DAILY celecoxib (Celebrex) 200 mg PO ONCE famotidine 40 mg PO DAILY metoprolol tartrate 25 mg PO BID yfpjzgajbjcm-nxkq-eszzd acid 18-400 mg-mcg (Certavite-Antioxidant) 0 tabs PO nitroglycerin 0 mg sublingual tramadol 50 mg PO Q8H PRN HPI Comments Details: Ld returns for follow-up regarding coronary disease and aortic regurgitation. To recall, he has a history of inferior STEMI from 2011. He received bare metal stent to the mid circumflex. Since last seen, he states he is feeling fine. No complaints like angina or shortness of breath or in fact anything cardiac sounding. [facility], [facility] Medical History (Updated 01/29/24 @ 13:11 by Edilia Bryan CMA) Carpal tunnel syndrome on right Personal history of nicotine dependence Non-rheumatic aortic stenosis Nonrheumatic aortic valve regurgitation ST elevation myocardial infarction (STEMI) of inferior wall Atherosclerotic cardiovascular disease Surgical History History of foot surgery (~10/2013) History of right inguinal hernia repair (~04/2015) History of left inguinal hernia repair (~03/2016) History of heart artery stent (~04/2012) Family History Father CVD (cardiovascular disease) Mother CVD (cardiovascular disease) Social History (Updated 01/29/24 @ 13:11 by Edilia Bryan CMA) Alcohol intake: current Comment: social Patient Tobacco Use Status: Former Tobacco user Current occupational status: retired Review of Systems Const Denies chills, Denies fatigue, Denies fever(s), Denies weight gain and Denies weight loss ENT Denies dizziness Card Denies chest pain, Denies leg edema, Denies lightheadedness, Denies p alpitations, Denies dyspnea on exertion, Denies orthopnea and Denies other Resp Denies cough and Denies dyspnea on exertion GI Denies hematochezia and Denies change in stool character Musc Denies abnormal gait, Denies muscle weakness, Denies numbness, Denies radiating pain into limb and Denies tingling Neuro Denies abnormal gait, Denies dizziness, Denies numbness and Denies tingling Endo Denies fatigue and Denies palpitations Physical Exam Vital Signs: Last Vital Signs Pulse 56 01/29/24 13:03 BP 126/62 01/29/24 13:03 BMI result Body Mass Index 18.2 Const General: comfortable and no acute distress Orientation/consciousness: patient oriented x3 HEENT Other: Unremarkable Head: Yes normal to inspection Neck Neck: Yes normal visual inspection Chest Chest palpation & inspection: normal inspection of the chest Resp Auscultation: clear to auscultation bilaterally Cardio Palpation: normal PMI Heart sounds: S1 normal heart sound present, S2 normal heart sound present, no gallops, Murmur heart sound present systolic II/ and at the apex and no rubs GI Palpation (GI): Soft to palpation Back/Spine/Pelvis Other: unremarkable Skin General skin exam: no rashes or lesions noted Neuro General: patient oriented x3 Extrem General: Yes normal to inspection Psych Mental Status: mental status grossly normal Office Procedures EKG Details: EKG with sinus, 56/min, non specific IVCD, normal MO/[place]. [id number]-[id number], Complete Assessment & Plan Assessment & Plan (1) Atherosclerotic cardiovascular disease: Code(s): I25.10 - Atherosclerotic heart disease of [place] coronary artery without angina pectoris Category: Medical Plan: Continue aspirin, metoprolol, and statins. In the past LDL was quite controlled and LDL 45 mg/dL; triglycerides 36 mg/dL. In 2019 - 54 mg/dL. In 2021- 77 mg/dL. As it has been many years since the last ischemia workup, we will pursue an echocardiogram with stress test. (2) Nonrheumatic aortic valve regurgitation: Code(s): I35.1 - Nonrheumatic aortic (valve) insufficiency Category: Medical Plan: Echocardiogram with tscg-hw-ulxokthf aortic regurgitation. Monitor periodically. (3) Non-rheumatic aortic stenosis: Code(s): I35.0 - Nonrheumatic aortic (valve) stenosis Category: Medical Plan: In the last echocardiogram, could not exclude bicuspid aortic valve. There was moderate thickening of the valve. Mean gradient across the aortic valve was 10 mm Hg and thought to have mild stenosis. Ascending aortic size was 3.6 cm. Recheck echocardiogram. Orders: Orders CA stress test Today Jericho Ribeiro MD I25.10 - Atherosclerotic heart di sease of [place] coronary artery without angina pectoris, R07.2 - Precordial pain NM cardiolite stress test Today Jericho Ribeiro MD I25.10 - Atherosclerotic heart disease of [place] coronary artery without angina pectoris, R07.2 - Precordial pain CA echo transthoracic complete Today Jericho Ribeiro MD I25.10 - Atherosclerotic heart disease of [place] coronary artery without angina pectoris Medications: Changed From celecoxib (Celebrex) 200 mg PO BID 30 days 60 caps 0RF To celecoxib (Celebrex) 200 mg PO ONCE Ethel Cruz PA-C Coding Level of Care Code Est Pt Level 4 (00790) Diagnoses Atherosclerotic cardiovascular disease I25.10 Nonrheumatic aortic valve regurgitation I35.1 Non-rheumatic aortic stenosis I35.0 CPT Codes EKG - CPT: 48973-[id number], Complete ([id number])
[2024-01-29 13:03] VITALS: BP 126/62; PULSE 56; BMI 18.2
== END 2024-01-29 13:36 | disposition home or self-care (01) ==
PROVIDERS: PCP Family Medicine; Visit Provider Internal Medicine
DX: I25.10 Atherosclerotic heart disease of native coronary artery without angina pectoris (principal); I35.1 Nonrheumatic aortic (valve) insufficiency; I35.0 Nonrheumatic aortic (valve) stenosis
CPT/HCPCS: 93010; 99214

== ENCOUNTER → 2024-01-29 13:01 | Outpatient (BNVA) | payer OTHER, SELFPAY | PROVIDERS: PCP Family Medicine; Visit Provider Internal Medicine | DX: I25.10 Atherosclerotic heart disease of native coronary artery without angina pectoris (principal); I10 Essential (primary) hypertension; I35.1 Nonrheumatic aortic (valve) insufficiency; I35.0 Nonrheumatic aortic (valve) stenosis; Z95.5 Presence of coronary angioplasty implant and graft | CPT/HCPCS: 93005; 99212 ==

== ENCOUNTER → 2024-02-15 12:41 | Outpatient (REF) | payer OTHER, SELFPAY ==
--- NOTE | 2024-02-15 12:44 | CA_ITS ---
Transthoracic Echocardiogram Patient (Last, First, Middle): Ld Workman J Gender: Male Date of : 1960 Age: 64 Procedure Date: 02/15/2024 Procedure Type: Transthoracic Echocardiogram Location: OP Height: 177.8 cm Weight: 63.5 kg BSA: 1.79 m2 Heart Rate: 54 bpm BP: 116 / 60 mmHg Cash Specialist: SB Referring MD: Jericho Ribeiro MD Symptoms: I25.10 - Atherosclerotic heart disease of [place] coronary artery without... Study Quality: Adequate ECG Rhythm: Bradycardia Conclusions: - Normal left ventricular cavity size. There is mildly increased left ventricular wall thickness. The left ventricular systolic function is hyperdynamic. The visually estimated ejection fraction is >70%. - Normal right ventricular cavity size and systolic function. - There is mild aortic valve stenosis. There is mild to moderate aortic valve regurgitation. Findings Left Ventricle Normal left ventricular cavity size. There is mildly increased left ventricular wall thickness. The left ventricular systolic function is hyperdynamic. The visually estimated ejection fraction is >70%. There is no evidence of regional wall motion abnormalities. Diastolic function is normal for age. Right Ventricle Normal right ventricular cavity size and systolic function. Atria The left atrium is mildly dilated. Aortic Valve There is moderate calcification of the aortic valve. There is mild aortic valve stenosis. There is mild to moderate aortic valve regurgitation. Mitral Valve The mitral valve appears normal. There is no mitral valve regurgitation. There is no mitral valve stenosis. Pulmonic Valve The pulmonic valve is likely normal. Tricuspid Valve Normal tricuspid valve structure. There is no tricuspid valve regurgitation. Tricuspid regurgitation envelope is inadequate for calculation of right ventricular systolic pressure. Normal right atrial pressure. Great Vessels The visualized portions of the pulmonary artery and branches are normal. Venous The inferior vena cava is normal in size and collapses greater than 50% with inspiration. Pericardium/Pleural There is no evidence of pericardial effusion. Prior Study Comparison No significant change compared to prior study dated: 10/27/2021. Measurements 2D Linear Measurements IVSd: 1.15 0.6-0.9/0.6-1.0 cm LVIDd: 5.32 3.9-5.3/4.2-5.9 cm LVIDd Index: 2.97 2.4-3.2/2.2-3.1 cm/m2 LVIDs: 2.58 2.0-3.6 cm LVPWd: 1.13 0.7-1.1 cm LA Diam: 3.70 2.7-3.8/3.0-4.0 cm LAIDs Index: 2.07 1.5-2.3 cm/m2 LV Mass: 299.94 67-162/88-224 g LV Mass Index: 167.57 43-95/49-115 g/m2 LVOT Diam: 2.50 3.0+(-)1.3 cm 2D Systolic Function EF 4C: 66.50 >55% EF 2C: 76.20 >55% EF BiP: 73.10 >55% Mitral Valve MV Pk E: 0.55 MV PK A: 0.54 MV Decel Time: 168.00 E/A: 1.00 E'Lateral: 9.03 E'Medial: 6.09 E/E' Med: 9.00 E/E' Lat: 6.10 PHT: 49.00 MVA PHT: 4.49 Decel [place]: 3.26 Aortic Valve AoV Pk Kofi: 2.43 AoV Mn Kofi: 1.67 AoV VTI: 0.52 AoV Pk Grad: 24.00 Aov Mn Grad: 13.00 CHANI Cont.VTI: 3.11 AI Pk Kofi: 4.03 AI [place]: 1.63 LVOT LVOT Pk Kofi: 1.53 LVOT Mn Kofi: 1.04 LVOT VTI: 0.33 LVOT Pk Grad: 9.00 LVOT Mn Grad: 5.00 LVOT Diam: 2.50 LVOT Area: 4.91 Diastolic Function MV Pk E: 0.55 MV Pk A: 0.54 E/A: 1.00 E'Medial: 6.09 E/E' Med: 9.00 E' Laterial: 9.03 E/E' Lat: 6.10 Right Ventricle TAPSE (mm): 29.10 TVS' Kofi: 14.20 Tricuspid Valve RA Press: 3.00 Great Vessels Aorta Sinus of Valsalva: 3.50 2.0-3.5 cm Ao Asc: 3.60 2.1-3.4 cm Pulmonary Veins Pulm Vein S/D 1.30 Pulmonary Valve PV Pk Kofi: 1.23 Peak PV Grad: 6.00 Updated in Other Vendor System with Status of Final Baljinder Cash MD electronically signed on 02/18/2024 5:35:58 PM with status of Final
== END ==
LOC: HO.CARD 12:41
PROVIDERS: PCP Family Medicine; Visit Provider Internal Medicine
DX: I25.10 Atherosclerotic heart disease of native coronary artery without angina pectoris (principal)
CPT/HCPCS: 93306

== ENCOUNTER → 2024-02-15 12:44 | Outpatient (BNV) | payer OTHER, SELFPAY | PROVIDERS: PCP Family Medicine; Visit Provider Internal Medicine Cardiovascular Disease | DX: I35.2 Nonrheumatic aortic (valve) stenosis with insufficiency (principal) | CPT/HCPCS: 93306 ==

== ENCOUNTER 2024-02-20 18:14 | Outpatient (REF) | payer OTHER, SELFPAY | END 2024-02-20 18:15 | disposition home or self-care (01) | LOC: HO.MRI 18:14 | PROVIDERS: PCP Family Medicine; Visit Provider Physician Assistant | DX: Z13.89 Encounter for screening for other disorder (principal) ==

== ENCOUNTER → 2024-03-31 10:49 | Outpatient (REF) | payer OTHER, SELFPAY ==
--- NOTE | 2024-03-31 11:04 | CA_ITS ---
Acquisition Time: 2024-03-31 11:05:36 Total Exercise Time: 00:04:55 Test Indications: CP Medications: SEE H Protocol: RYAN Max HR: 089 BPM 57% of Pred: 156 BPM Max BP: 168/070 mmHG Max Work Load: 6.8 METS Exercise stress test with exercise 4 min 55 sec of Ryan protocol, achieving 56% MPHR, without anginal symptoms, with request to stop due to knee pain, with isolated PACs in recovery, with normotensive response to exercise, with nondiagnostic EKG for ischemia due to suboptimal heart rate, in recovery there are scooping ST segments inferiorly, V5-V6 of unclear significance. Echo images obtained by tech at rest and immediately post peak exercise. Definity contrast used. Pt states he did not take his Metoprolol this am. Test reviewed with Dr Kelsey. STRESS ECHO : Technique : Images were obtained at rest and immediately post exercise within 1 minute. Definty contrast was used to enhance endocardial definition. Images were obtained in multiple views and compared side to side. Findings : At rest images are of good quality. LV systolic function is normal with normal wall motion at rest. Diastolic function suggest impaired relaxation filling pattern with borderline LA pressures. Post exercise images were obtained at sub optimal HR. Images were borderline with parastarneal images off axis. There appears to be augmentation of overall LV systolic function. There are no obvious regioanl wall motion abnormalities. LA filling pressures are not elevated. Conclusion : Stress echo is non diagnostic for ischemia Referred By: Jericho Ribeiro Overread By: JELANI KELSEY MD
== END ==
LOC: HO.CARD 10:49
PROVIDERS: PCP Family Medicine; Visit Provider Internal Medicine
DX: R07.2 Precordial pain (principal); I25.10 Atherosclerotic heart disease of native coronary artery without angina pectoris
CPT/HCPCS: 93350; Q9957

== ENCOUNTER → 2024-03-31 11:04 | Outpatient (BNV) | payer OTHER, SELFPAY | PROVIDERS: PCP Family Medicine; Visit Provider Internal Medicine Cardiovascular Disease | DX: R07.9 Chest pain, unspecified (principal); I49.1 Atrial premature depolarization | CPT/HCPCS: 93016; 93018; 93350; 93352 ==

== ENCOUNTER 2024-04-23 07:10 | Outpatient (REF) | payer OTHER, SELFPAY ==
--- NOTE | ~2024-04-23 | CT_ITS ---
EXAMINATION: CT KNEE WITHOUT CONTRAST, LEFT CLINICAL INFORMATION: Osteoarthritis left knee. COMPARISON: X-ray left knee October 2023. CT left knee September 2023. TECHNIQUE: CT scan of the left knee is performed with reconstruction imaging performed at the acquisition workstation. This CT examination was performed using dose optimization techniques as appropriate, variously including the following: *Automated exposure control *Adjustment of mA and/or kV according to patient size (this includes techniques or standardized protocols for targeted exams where dose is matched to indication/reason for exam; i.e. extremities or head) *Use of iterative reconstruction technique DLP: 163 mGy-cm FINDINGS: There is chondrocalcinosis most evident in the lateral compartment. Medial Compartment: There is persistent nonuniform joint space narrowing with marginal osteophytes indicative of [id number]-[id number] osteoarthritis, unchanged. Subchondral sclerosis also present on both the tibial and femoral side of the joint. Lateral Compartment: Chondrocalcinosis. Minimal marginal osteophytes. No joint space narrowing. Findings indicative of minimal arthrosis, unchanged. Patellofemoral Compartment: Chondrocalcinosis. Minimal marginal osteophytes. Findings indicative of at least mild osteoarthritis. No significant effusion. The remaining bone is normal. Proximal tibiofibular joint is normal other than chondrocalcinosis. Surrounding soft tissues are unremarkable. CT/CT knee LT wo IV con IMPRESSION: 1. Osteoarthritis unchanged compared with September 2023. 2. Chondrocalcinosis unchanged. Electronically signed by: Eb Way MD 05/05/2024 10:36 AM JULIANNE
== END 2024-04-23 07:11 | disposition home or self-care (01) ==
LOC: HO.CT 07:10
PROVIDERS: PCP Family Medicine; Visit Provider Physician Assistant
DX: M17.12 Unilateral primary osteoarthritis, left knee (principal)
CPT/HCPCS: 73700

== ENCOUNTER 2024-06-12 09:20 | Outpatient (AMB) | payer OTHER, SELFPAY ==
--- NOTE | 2024-06-12 09:24 | A.OFFVIS_ITS ---
Intake Visit Reasons: Tel- Left knee CT review Intake Note: Ld is a 64 year old male who presents today for a CT scan review of his left knee. Allergies No Known Allergies [No Known Allergies*] Allergy (Verified 06/12/24 09:24) HPI HPI Tel- Left knee CT review: Details: 64-year-old male who presents over a telephone for telehealth appointment for a follow-up of left knee pain. I last saw the patient in the office on 01/08/24, when a STAT MRI of the left knee was ordered and a one-time prescription for tramadol 50 mg PO Q8H PRN was sent to the pharmacy. While in the office today, the patient reports that his left knee pain remains intermittent and positional. He had his CT scan done and would like to review it and to discuss further treatment options depending on the results. Patient confirmed prior left knee arthroscopy by Dr. Veloz when he was 18 in the previous visit. [facility] Medical History (Updated 01/29/24 @ 13:11 by Edilia Bryan CMA) Carpal tunnel syndrome on right Personal history of nicotine dependence Non-rheumatic aortic stenosis Nonrheumatic aortic valve regurgitation ST elevation myocardial infarction (STEMI) of inferior wall Atherosclerotic cardiovascular disease Surgical History History of foot surgery (~10/2013) History of right inguinal hernia repair (~04/2015) History of left inguinal hernia repair (~03/2016) History of heart artery stent (~04/2012) Family History Father CVD (cardiovascular disease) Mother CVD (cardiovascular disease) Social History (Updated 01/29/24 @ 13:11 by Edilia Bryan CMA) Alcohol intake: current Comment: social Patient Tobacco Use Status: Former Tobacco user Current occupational status: retired Review of Systems Const All systems reviewed & are unremarkable except as noted in HPI and below Telehealth Telehealth Telehealth Platform: Telephone Location of provider rendering services: practice address Location of patient: address on file Patient Identification confirmed using: Name, : Yes Telehealth method: voice only Patient verbally consented to treatment: Yes Patient verbally consented to billing insurance company: Yes Patient informed of any privacy concerns related to visit: Yes Minutes spent on Phone/Video with Pt.: 10 Assessment & Plan Assessment & Plan (1) Osteoarthritis of left knee: Code(s): M17.12 - Unilateral primary osteoarthritis, left knee Category: Medical Qualifiers: Osteoarthritis type: unspecified Qualified Code(s): M17.12 - Unilateral primary osteoarthritis, left knee Plan Mr. Workman is a 64-year-old male who presents over a telephone for telehealth appointment for a follow-up of left knee pain. I last saw the patient in the office on 01/08/24, when a STAT MRI of the left knee was ordered and a one-time prescription for tramadol 50 mg PO Q8H PRN was sent to the pharmacy. While in the office today, the patient reports that his left knee pain remains intermittent and positional. He had his CT scan done and would like to review it and to discuss further treatment options depending on the results. The patient confirmed prior left knee arthroscopy by Dr. Veloz when he was 18 in the previous visit. I discussed the role of repeating cortisone injection in which the patient expressed interest in proceeding with that. His appointment will be booked accordingly to obtain his cortisone injection in the left knee. Follow-up will be as scheduled for obtaining cortisone injection, or sooner if needed. CT scan of the left knee, obtained on 04/23/24, revealed: 1. Osteoarthritis unchanged compared with September 2023. 2. Chondrocalcinosis unchanged. Duration of the telephone visit was 10 minutes. Patient Instructions: Scribed by Jocelyn Thompson medical administrative specialist, for Ethel Cruz PA-C on 06/12/24 at 10:10 am EST. Coding Level of Care Code Tele Est Pt Level 3 (58099) Diagnoses Osteoarthritis of left knee, unspecified osteoarthritis type M17.12 Osteoarthritis type: unspecified
== END 2024-06-12 09:24 | disposition home or self-care (01) ==
LOC: HO.HOS 09:20
PROVIDERS: PCP Family Medicine; Visit Provider Physician Assistant
DX: M17.12 Unilateral primary osteoarthritis, left knee (principal)
CPT/HCPCS: 99441

== ENCOUNTER → 2024-06-12 09:20 | Outpatient (BNVA) | payer OTHER, SELFPAY | PROVIDERS: PCP Family Medicine; Visit Provider Physician Assistant ==

== ENCOUNTER 2024-07-21 12:40 | Outpatient (REF) | payer MEDICARE, SELFPAY ==
--- NOTE | ~2024-07-21 | XR_ITS ---
EXAMINATION: XR HAND 3 OR MORE VIEWS RIGHT HISTORY: M79.641 - Pain in right hand COMPARISON: Comparison is made with the prior examination dated 06/30/2024. FINDINGS: Three views of the right hand are submitted. Osseous mineralization is normal. There is no fracture or dislocation. There is mild osteoarthritis of the DIP joints. The soft tissues are unremarkable. XR/XR hand RT min 3V IMPRESSION: Mild osteoarthritis of the DIP joints. Electronically signed by: Ld Serra MD 07/21/2024 03:20 PM JULIANNE
--- OUTSIDE RECORDS SUMMARY | 2024-07-21 17:40 | XMS_ITS | Encounter Summary ---
Author Organization [employer] Address [address] [facility] 7t [place] [address] Care Team Providers Care Cognos Analyst Name Role Phone Joanna Samira Primary Care Provider Reason for Visit * Reason Onset Date Comments Appointment Request 07/04/2024 07/04/24-Spok e with patient schedule follow up appt. 07/29/24 at 10am. Mailed appt. Letter. Encounter Details Date Type Department Care Team ([facility] Contact Info) Description 07/04/2024 Telephone [facility] MEDICINE [address] [place] [address] Naomy Omalley [place] Appointment Request (07/04/24-Spoke with [...] Description 07/29/2024 10:00 AM EST Office Visit [facility] MEDICINE [address] [place] [address] Samira Marshall DO [address] [place] [address] documented as of this encounter Visit Diagnoses Not on filedocumented in this encounter Additional Health Concerns Assessment Noted Time PHQ-9 Depression Total Score: 0 10/11/19 23 11:03 AM EDT documented as of this encounter Care Teams Cognos Analyst Relationship Specialty Start Date End Date Samira Marshall DO [address] [place] [address] PCP - General Family Medicine 07/12/21 documented as of this encounter
--- OUTSIDE RECORDS SUMMARY | 2024-07-21 17:40 | XMS_ITS | Encounter Summary ---
Author Organization [employer] Address [address] [facility] 7t [place] [address] Care Team Providers Care Golf Starter And Ranger Name Role Phone JoannaSamira Primary Care Provider [phone] Encounter Details Date Type Department Care Team [...] Description 07/29/2024 10:00 AM EST Office Visit [facility] MEDICINE [address] [place] [address] Samira Marshall DO [address] [place] [address] documented as of this encounter Visit Diagnoses Not on filedocumented in this encounter Additional Health Concerns Assessment Noted Time PHQ-9 Depression Total Score: 0 10/11/19 23 11:03 AM EDT documented as of this encounter Care Teams Golf Starter And Ranger Relationship Specialty Start Date End Date Samira Marshall DO [address] [place] [address] PCP - General Family Medicine 07/12/21 documented as of this encounter
--- OUTSIDE RECORDS SUMMARY | 2024-07-21 17:40 | XMS_ITS | Encounter Summary ---
Author Organization [employer] [facility] Address [address] [facility] 7t [place] [address] Care Team Providers Care Grain Packer Name Role Phone Samira Marshall DO Primary Care Provider Encounter Details Date Type Department Care Team ([facility] Contact Info) Description 06/26/2022 Orders Only [facility] MEDICINE [address] [place] [address] Ethel Etienne, PharmD [address] [place] [address] ERRONEOUS ENCOUNTER--DISREGARD (Primary Dx) Social History Tobacco [...] Description 07/29/2024 10:00 AM EST Office Visit [facility] [address] [place] [address] Samira Marshall DO [address] [place] [address] documented as of this encounter Visit Diagnoses Diagnosis ERRONEOUS ENCOUNTER--DISREGARD- Primary documented in this encounter Care Teams Grain Packer Relationship Specialty Start Date End Date Samira Marshall DO [address] [place] [address] PCP - General Family Medicine 07/12/21 documented as of this encounter
--- OUTSIDE RECORDS SUMMARY | 2024-07-21 17:41 | XMS_ITS | Clinical Summary ---
Author Organization [employer] Address [address] [facility] 7t [place] [address] Care Team Providers Care Spool Fixer Name Role Phone JoannaSamira Primary Care Provider [...] Type Department Care Team Description 07/04/2024 Telephone [facility] MEDICINE [address] [place] [address] Naomy Omalley [place] Appointment Request (07/04/24-Spoke with patient schedule follow up appt. 07/29/24 at 10am. Mailed appt. Letter.) 07/04/2024 Travel 06/30/2024 Orders Only [facility] External Provider, [facility] 06/06/2024 Telephone [facility] MEDICINE [address] [place] [address] Samira Marshall DO Nurse Triage 05/11/2024 Refill [facility] MEDICINE [address] [place] [address] Samira Marshall DO 05/06/2024 Telephone [facility] MEDICINE [address] [place] [address] Samira Marshall DO NURSE NILDA 05/02/2024 Refill [facility] [address] [place] [address] Samira Marshall DO Acute pain of left knee 04/23/2024 Orders Only [facility] External Provider, [facility] from Last 3 Months Immunizations Name Administration [...] Description 07/29/2024 10:00 AM EST Office Visit [facility] MEDICINE [address] [place], [place] [phone] Samira Marshall DO [address] [place] [address] Health Maintenance Due Date Last Done Comments [...] [address] ?[place] [address] ?XRay Report ? Signed with Addenda ? Patient: Ld Workman ?MR#: [id number] ?? 43 ? : 1960 ?Acct:[id number] ? Age/Sex: 64 / M ?ADM Date: 07/21/24 ? Loc: HO.HOSX ? Attending Dr: Yasir GALVIN ? Ordering Physician: Yasir Tavares ?? Date of Service: 07/21/24 ?? Procedure(s): XR hand RT min 3V ?? Accession Number(s): [id number] ? cc: Yasir Tavares; Samira Marshall DO [...] DD/ 1304 ? TD/TT: 07/21/24 1310 ? Fare Enforcement Officer: ? Procedure Note Donisajacobdezter, Image - 07/21/2024 [facility] [address] [place] [address] [address] [place] [address] XRay Report Signed with Ev Patient: Ld Workman JMR#: [id number] 43 : 1960Acct:[id number] Age/Sex: 64 / MADM Date: 07/21/24 Loc: HO.HOSX Attending Dr: Yasir GALVIN Ordering Physician: Yasir Tavares Date of Service: 07/21/24 Procedure(s): XR hand RT min 3V Accession Number(s): [id number] cc: Yasir Tavares; Samira Marshall DO ADDENDUM [...] 07/21/24 1520 DD/ 1304 TD/TT: 07/21/24 1310 Fare Enforcement Officer: [facility] External Provider IMG XR PROCEDURES Edited Result - Final * XR HAND WRIST RT (06/30/2024 9:00 AM EST) Anatomical Region Laterality Modality Abdomen Radiographic Gloria ging 06/30/2024 9:00 AM EST Narrative 06/30/2024 9:12 AM EST ? [facility] ?[address] ?[place] [address] ?XRay Report ? Signed ? Patient: Ld Workman ?MR#: [id number] ?? 43 ? : 1960 ?Acct:[id number] ? Age/Sex: 64 / M ?ADM Date: 06/30/24 ? Loc: HO.ED ? Attending Dr: ? Ordering Physician: Dawood Webb MD ?? Date of Service: 06/30/24 ?? Procedure(s): XR hand wrist RT ?? Accession Number(s): [id number] ? cc: Samira Marshall DO; Dawood Webb [...] DD/ 0900 ? TD/TT: 06/30/24 0905 ? Fare Enforcement Officer: MSM ? Procedure Note Donotjacobinterpreter, Image - 06/30/[address] [address] XRay Report Signed Patient: Ld Workman JMR#: [id number] 43 : 1960Acct:[id number] Age/Sex: 64 / MADM Date: 06/30/24 Loc: HO.ED Attending Dr: Ordering Physician: Dawood Webb MD Date of Service: 06/30/24 Procedure(s): XR hand wrist RT Accession Number(s): [id number] cc: Samira Marshall DO; Dawood Webb MD [...] in OV> 06/30/24909 DD/ 9 TD/TT: 06/30/24904 Fare Enforcement Officer: NICKIE [facility] External Provider IMG XR PROCEDURES Edited Result - Final * CT Kne w/o Contrast Left (04/23/2024 7:24 AM EDT) Anatomical Region Laterality Modality Lower Extremities, Knee Left Computed Tomography 04/23/2024 7:24 AM EDT Narrative 05/05/2024 10:40 AM EST ? [facility] ?[address] ?[place] [address] ? [place] Scan Report ? Signed ? Patient: Ld Workman ?MR#: [id number] ?? 43 ? : 1960 ?Acct:[id number] ? Age/Sex: 64 / M ?ADM Date: 04/23/24 ? Loc: HO.CT ? Attending Dr: Ethel Cruz PA-C ? Ordering Physician: Ethel Cruz PA-C ?? Date of Service: 04/23/24 ?? Procedure(s): CT knee LT wo IV con ?? Accession Number(s): [id number] ? cc: Ethel Cruz PA-C; Samira Marshall [...] ?? narrowing with marginal osteophytes indicative of bvat-yd-urmpurrk ?? osteoarthritis, unchanged. Subchondral sclerosis also present [...] ? DD/ 3 ? TD/TT: 04/23/247[address] ? Fare Enforcement Officer: WG ? Procedure Note Chuck Norris - 05/05/[address] [place] [address] [address] Scan Report Signed Patient: Ld Workman JMR#: [id number] 43 : 1960Acct:[id number] Age/Sex: 64 / MADM Date: 04/23/24 Loc: HO.CT Attending Dr: Ethel Cruz PA-C Ordering Physician: Ethel Cruz PA-C Date of Service: 04/23/24 Procedure(s): CT knee LT wo IV con Accession Number(s): [id number] cc: Ethel Cruz PA-C; Samira Marshall DO [...] space narrowing with marginal osteophytes indicative of tpez-wf-krvpezsf osteoarthritis, unchanged. Subchondral sclerosis also present on [...] 05/05/24 1036 DD/ 0724 TD/TT: 04/23/24 0745 Fare Enforcement Officer: NORBERTO [facility] External Provider IMG CT PROCEDURES Final Result [...] a test for HCV RNA (test code 13990) is suggested. ?? For additional information please refer to http://12Society.Slyce/faq/TUQ82n9 (This link is being provided for informational/ [...] ? For additional information please refer to http://12Society.Slyce/faq/UKF248 (This link is being provided for informational/ [...] of diabetes in children. ?? According to [employer] Diabetes Association (ADA) guidelines, hemoglobin A1c <7.0% [...] ?? Donald KAISER et al. HEIDI. 2013;310(19): 5748-1115 ?? (http://education.Slyce/faq/THG316) Non-HDL Cholesterol 91 <130 mg/dL (calc) CONVERTED [...] Most Recently Relevant to Health Maintenance Insurance [facility] ONE CARE Care Teams Spool Fixer Relationship Specialty Start Date End Date Samira Marshall DO [address] [place] [address] PCP - General Family Medicine 07/12/21
--- OUTSIDE RECORDS SUMMARY | 2024-07-21 17:41 | XMS_ITS | Encounter Summary ---
Author Organization [employer] [facility] Address [address] [place] [address] 7t [place] [address] Care Team Providers Care Sed Special Education Teacher Name Role Phone Samira Marshall DO Primary Care Provider + [phone] Reason for Visit * Reason Comments Med Refill Encounter Details Date Type Department Care Team (Late Contact Info) Description 08/17/2022 Refill [facility] MEDICINE [address] [place] [address] Sweta Cotton MD [address] [place] [phone] Social History Tobacco Use Types Packs/Day Years [...] Description 07/29/2024 10:00 AM EST Office Visit [facility] MEDICINE [address] [place] [address] Samira Marshall DO [address] [place] [address] documented as of this encounter Visit Diagnoses Not on filedocumented in this encounter Care Teams Sed Special Education Teacher Relationship Specialty Start Date End Date Samira Marshall DO [address] [place] [address] PCP - General Family Medicine 07/12/21 documented as of this encounter
--- OUTSIDE RECORDS SUMMARY | 2024-07-21 17:41 | XMS_ITS | Encounter Summary ---
Author Organization [email or web address] Address [address] [facility] 7t [place] [address] Care Team Providers Care Cutter Head Sharpener Name Role Phone Joanna Samira Primary Care Provider + [phone] Encounter Details Date Type Department Care Team ([facility] Contact Info) Description 06/30/2024 Orders Only [facility] External Provider, [facility] Social History Tobacco Use Types Packs/Day Years [...] Description 07/29/2024 10:00 AM EST Office Visit [facility] [address] [facility] [address] Samira Marshall, [address] [place] [address] documented as of this encounter Procedures Procedure Name Priority Date/Time Associated Diagnosis Comments XR HAND 3+ VIEWS RIGHT Routine 07/21/2024 1:04 PM EST XR HAND WRIST RT Routine 06/30/2024 9:00 AM EST documented in this encounter Results * XR Hand 3+ Views Right (07/21/2024 1:04 PM EST) Anatomical Region Laterality Modality Upper Extremities, Hand Right [facility] 07/21/2024 1:04 PM EST Narrative 07/21/2024 3:23 PM EST ? [facility] ? [address] ?[place] [address] ?XRay Report ? Signed with Addenda ? Patient: Ld Workman ?MR#: [id number] ?? 43 ? : 1960 ?Acct:[id number] ? Age/Sex: 64 / M ?ADM Date: //25 ? Loc: HO.HOSX ? Attending Dr: Yasir GALVIN ? Ordering Physician: Yasir Tavares ?? Date of Service: 07/21/24 ?? Procedure(s): XR hand RT min 3V ?? Accession Number(s): [id number] ? cc: Yasir Tavares; Samira Marshall DO [...] PM EST ? Addendum Dictated By: ?Ld eSrra MD ? Addendum Signed By: ? <Electronically [...] DD/ 1304 ? TD/TT: 07/21/24 1310 ? Solution Director: ? Procedure Note Donliliana, Image - 07/21/2024 [facility] [address] [place] [address] [address] [place] [address] XRay Report Signed with Ev Patient: Ld Workman JMR#: [id number] 43 : 1960Acct:[id number] Age/Sex: 64 / MADM Date: 07/21/24 Loc: HO.HOSX Attending Dr: Yasir GALVIN Ordering Physician: Yasir Tavares Date of Service: 07/21/24 Procedure(s): XR hand RT min 3V Accession Number(s): [id number] cc: Yasir Tavares; Samira Marshall DO ADDENDUM [...] 07/21/24 1520 DD/ 1304 TD/TT: 07/21/24 1310 Solution Director: [facility] External Provider IMG XR PROCEDURES Edited Result - Final * XR HAND WRIST RT (06/30/2024 9:00 AM EST) Anatomical Region Laterality Modality Abdomen Radiographic Gloria ging 06/30/2024 9:00 AM EST Narrative 06/30/2024 9:12 AM EST ? [facility] ?[address] ?[place] [address] ?XRay Report ? Signed ? Patient: Ji,Ld J ?MR#: [id number] ?? 43 ? : 1960 ?Acct:[id number] ? Age/Sex: 64 / M ?ADM Date: 06/30/24 ? Loc: HO.ED ? Attending Dr: ? Ordering Physician: Dawood Webb MD ?? Date of Service: 06/30/24 ?? Procedure(s): XR hand wrist RT ?? Accession Number(s): [id number] ? cc: Samira Marshall DO; Dawood Webb [...] ? DD/ 0900 ? TD/TT: 06/30/24904 ? Solution Director: MSM ? Procedure Note Chuck Norris - 06/30/[address] [address] XRay Report Signed Patient: Ld Workman JMR#: [id number] 43 : 1960Acct:[id number] Age/Sex: 64 / MADM Date: 06/30/24 Loc: HO.ED Attending Dr: Ordering Physician: Dawood Webb MD Date of Service: 06/30/24 Procedure(s): XR hand wrist RT Accession Number(s): [id number] cc: Samira Marshall DO; Dawood Webb MD [...] 06/30/24 0910 DD/ 09 TD/TT: 06/30/24 0905 Solution Director: NICKIE [facility] External Provider IMG XR PROCEDURES Edited Result - Final documented in this encounter Visit Diagnoses Not on filedocumented in this encounter Additional Health Concerns Assessment Noted Time PHQ-9 Depression Total Score: 0 10/11/19 23 11:03 AM EDT documented as of this encounter Care Teams Cutter Head Sharpener Relationship Specialty Start Date End Date Samira Marshall DO [address] [place] [address] PCP - General Family Medicine 07/12/21 documented as of this encounter
== END 2024-07-21 12:41 | disposition home or self-care (01) ==
LOC: HO.HOSX 12:40
PROVIDERS: PCP Family Medicine
DX: M79.641 Pain in right hand (principal); S62.302A Unspecified fracture of third metacarpal bone, right hand, initial encounter for closed fracture; S62.304A Unspecified fracture of fourth metacarpal bone, right hand, initial encounter for closed fracture
CPT/HCPCS: 73130; 99202

== ENCOUNTER 2024-07-21 12:40 | Outpatient (AMB) | payer MEDICARE, SELFPAY ==
--- NOTE | 2024-07-21 12:43 | MHC.OFFVIS ---
Vital Signs 07/21/24 12:46 Height 5 ft 11 in Weight 150 lb BMI 20.9 Intake Visit Reasons: New prob-ED f/u RT wrist pain DOI 06/29/24 Intake Note: Ld is a 64 year old right hand dominant male who presents today for a new problem visit for right wrist pain s/p slip and fall DOI: 06/29/2024. Patient was running after his granddaughter when he hit his right hand on the wall. Patient did not fall on his right hand. He reports the swelling has gone down however he is experiencing numbness on his right 4th and 5th digits. He is also experiencing pain on the dorsal aspect of the right hand. Patient had a right carpal tunnel release last spring, at [facility]. Denies previous injuries. He is taking Tylenol without relief. He continues to wear the velcro wrist brace he was given at the ED. He is also using an vesta wrap. Allergies No Known Allergies [No Known Allergies*] Allergy (Verified 07/21/24 12:49) HPI HPI New prob-ED f/u RT wrist pain DOI 06/29/24: Details: Patient is a 64-year-old male who presents for evaluation of right wrist and hand pain after hitting his hand on a wall, date of injury 06/29/2024. Patient reports that since that date, the swelling has gone down significantly in his right hand, but he is still experiencing significant pain. Patient reports that he is concerned that he has a fracture in his hand, although the x-rays taken in the emergency department were read as negative. Patient reports he has been wearing the splint faithfully since the ED. No other acute complaints or concerns at this time. REPLACED BY [facility] Medical History Carpal tunnel syndrome on right Personal history of nicotine dependence Non-rheumatic aortic stenosis Nonrheumatic aortic valve regurgitation ST elevation myocardial infarction (STEMI) of inferior wall Atherosclerotic cardiovascular disease Surgical History History of foot surgery (~10/2013) History of right inguinal hernia repair (~04/2015) History of left inguinal hernia repair (~03/2016) History of heart artery stent (~04/2012) Family History Father CVD (cardiovascular disease) Mother CVD (cardiovascular disease) Social History Alcohol intake: current Comment: social Patient Tobacco Use Status: Former Tobacco user Current occupational status: retired Review of Systems Const All systems reviewed & are unremarkable except as noted in HPI and below Physical Exam Vital Signs: BMI result Body Mass Index 20.9 Extrem Other: Patient is alert, oriented, and in no acute distress. Neuro: Normal sensation of the tips of all digits of the right hand at this time Vascular: Cap refill brisk Pain: Patient reports significant tenderness to palpation over the 3rd and 4th metacarpals in the dorsal aspect of the right hand No pain with range of motion ROM: Patient was able to make a closed fist and extend all digits of the right hand fully and without difficulty Skin: No lacerations or abrasions. General: There is noted to be a visible and palpable bump on the dorsal aspect of the patient's right hand at the level of fracture No ecchymosis, erythema, or evidence of infection. Psych: Appears grossly normal Affect normal Attitude cooperative Office Procedures AMB Fracture Care Fracture Billing Code: Fracture Billing Code Results Reviewed Results Reviewed: X-rays obtained in the office today and independently reviewed by me, Yasir Tavares PA-C, demonstrate nondisplaced fractures of the 3rd metacarpal base, 4th metacarpal shaft, as well as a questionable area of lucency in the 5th metacarpal base concerning for potential nondisplaced fracture. Assessment & Plan Assessment & Plan (1) Fracture of third metacarpal bone of right hand: Code(s): S62.302A - Unspecified fracture of third metacarpal bone, right hand, initial encounter for closed fracture Category: Medical (2) Fracture of fourth metacarpal bone of right hand: Code(s): S62.304A - Unspecified fracture of fourth metacarpal bone, right hand, initial encounter for closed fracture Category: Medical Plan 1. Right 3rd metacarpal base fracture 2. Right 4th metacarpal proximal shaft fracture 3. Concern for potential nondisplaced 5th metacarpal base fracture Date of injury 06/29/2024 Patient is educated about this injury Patient patient is educated about the typical recovery course At this time, due to being more than 3 weeks out from injury, the patient was informed that he will not require any casting or permanent splinting at this time Patient is educated that he we will be provided with a Velcro wrist splint to wear with daytime activities, as well as mile tape to mile tape the 3rd and 4th digits together Patient was amenable to this plan Patient will follow-up in 4 weeks with repeat x-rays for reassessment, sooner with any acute concerns Orders: Orders XR hand RT min 3V Today M79.641 - Pain in right hand Coding Level of Care Code New Pt Level 3 (26356) Diagnoses Fracture of third metacarpal bone of right hand S62.302A Fracture of fourth metacarpal bone of right hand S62.304A CPT Codes Fracture Care - Fracture Billing Code: Fracture Billing Code ([id number])
[2024-07-21 12:46] VITALS: BMI 20.9
--- OUTSIDE RECORDS SUMMARY | 2024-07-21 17:19 | XMS_ITS | Clinical Summary ---
Author Organization [employer] Address [address] [place] [address] Care Team Providers Care Gas Meter Installer Name Role Phone JoannaSamira Primary Care Provider Allergies No known active allergies Medications nicotine polacrilex (Commit) 2 MG lozenge Dissolve 1 lozenge slowly in mouth every 1-2 hours for 6 weeks, then 1 lozenge every 2-4 hours for 3 weeks, then 1 lozenge every 4-8 hours for 2 weeks, DO NOT EXCEED 20 PER DAY 2 Active nitroglycerin (Nitrostat) 0.[address] 1 TABLET UNDER THE TONGUE NEEDED FOR CHEST PAIN - MAY REPEAT IN 5 MINUTES TWICE. IF NO RELIEF CALL 911 OR GO TO EMERGENCY ROOM. 2 Active loratadine (Claritin) 10 MG tablet Take 1 tablet (10 mg) by mouth if needed each day for allergies. 30 tablet 2 3 Active fluticasone (Flonase) 50 MCG/ACT nasal spray Administer 2 sprays into each nostril if needed each day for rhinitis. Shake gently. Before first use, prime pump. After use, clean tip and replace cap. 16 g 2 3 Active acetaminophen (Tylenol 8 Hour) 650 MG ER tabletIndicatio ns:Chronic neck and back pain Take 1 tablet (650 mg) by mouth every 8 (eight) hours if needed for mild pain. 100 tablet 3 4 Active Diclofenac Sodium 1 % gelIndications: Chronic neck and back pain Apply 2 g topically if needed in the morning, at noon, in the evening, and at bedtime (Pain). 150 g 2 4 09/13/19 25 Active metoprolol tartrate (Lopressor) 25 MG tablet Take 1 tablet (25 mg) by mouth 2 times daily. 180 tablet 3 4 Active multivitamin with minerals (Cerovite) 18-400 mg-mcg tablet tablet Take 1 tablet by mouth in the morning. 90 tablet 3 4 09/13/19 25 Active baclofen (Lioresal) 10 MG tablet Take 1 tablet (10 mg) by mouth if needed in the morning, at noon, and at bedtime for muscle spasms. 60 tablet 2 4 Active famotidine (Pepcid) 40 MG tablet TAKE 1 TABLET BY MOUTH EVERY DAY NEEDED FOR ABDOMINAL PAIN AND HEARTBURN 90 tablet 3 4 Active atorvastatin (Lipitor) 80 MG tablet TAKE 1 TABLET BY MOUTH EVERY DAY IN THE EVENING 90 tablet 3 4 Active celecoxib (CeleBREX) 200 MG capsuleIndicati ons:Acute pain of left knee Take 1 capsule (200 mg) by mouth Once per day. 90 capsule 1 4 05/02/20 25 Active Aspirin Low Dose 81 MG EC tablet TAKE 1 TABLET BY MOUTH EVERY DAY 90 tablet 3 4 Active Active Problems Problem Noted Date Diagnosed Date Chronic pain of left knee 09/13/2023 Assessment & Plan (09/13/2023 2:08 PM EDT): With significant medial pain and tenderness, ?tear -knee XR with mild degenerative changes and moderate joint effusion JUL 2023 -referred for CT knee, as unable to tolerate MRI -tx with prednisone BID x 5 days -encouraged standing doses tylenol -trial baclofen prn -encouraged diclofenac gel -he agrees to re-trial tramadol for severe pain -encouraged increased ice therapy -referred to ortho for eval Arthritis of left knee 08/15/2023 Assessment & Plan (08/15/2023 8:47 AM EST): -Possible meniscus compromise. - Order XR knee. -Continue judicious use of celebrex and tylenol. -Refer to Physical Therapy. -Refer to Orthopedics. -Follow up with PCP Right wrist pain 08/15/2023 Assessment & Plan (08/15/2023 8:47 AM EST): -Refer to hand surgery. -Follow up with [facility] hand orthotics. -Rule out Carpal Tunnel syndrome. -Recommend continued use of wrist brace. -Follow up with PCP. Status post carpal tunnel release 08/06/2023 Overview (08/14/2023): Left wrist. Chronic neck pain 06/28/2022 Tobacco dependence 06/28/2022 Aortic valve regurgitation 06/26/2022 Coronary arteriosclerosis 06/26/2022 History of myocardial infarction 06/26/2022 Hyperlipidemia 06/26/2022 Essential hypertension 06/26/2022 Multilevel degenerative disc disease 06/26/2022 Prediabetes 06/26/2022 Spinal stenosis in cervical region 06/26/2022 Degenerative joint disease of hand 01/30/2021 History of alcohol abuse 04/14/2015 Chronic back pain 05/12/2012 Resolved Problems Problem Noted Date Diagnosed Date Resolved Date Acute pain of left knee 08/15/2023 03/2 06/2023 Assessment & Plan (08/15/2023 8:47 AM EST): -Possible meniscus compromise. - Order XR knee. -Continue judicious use of celebrex and tylenol. -Refer to Physical Therapy. -Refer to Orthopedics. -Follow up with PCP Encounters Date Type Department Care Team Description 07/04/2024 Telephone [facility] [address] [place] [address] Naomy Omalley [place] Appointment Request (07/04/24-Spoke with patient schedule follow up appt. 07/29/24 at 10am. Mailed appt. Letter.) 07/04/2024 Travel 06/30/2024 Orders Only [facility] External Provider, [facility] 06/06/2024 Telephone [facility] [address] [place] [address] Samira Marshall DO Nurse Triage 05/11/2024 Refill [facility] [address] [place] [address] Samira Marshall DO 05/06/2024 Telephone [facility] [address] [place] [address] Samira Marshall DO NURSE NILDA 05/02/2024 Refill [facility] [address] [place] [address] Samira Marshall DO Acute pain of left knee 04/23/2024 Orders Only [facility] External Provider, [facility] from Last 3 Months Immunizations Name Administration Dates Next Due Influenza injectable quadriv alent IIV4 with preservative 04/17/2018 Influenza injectable quadrivalent preservative f ree 08/21/2019 Pneumococcal Polysaccharide PPSV23 05/03/2010 TD (adult), 2 Lf tetanus tox oid, preservative free, adsorbed 02/18/2019 Tdap 06/01/2011 Zoster, Recombinant 01/14/2020,08/25/2019 Social History Tobacco Use Types Packs/Day Years Used Date Smoking Tobacco: Some Days Cigarettes Passive Smoke Exposure: Current Smokeless Tobacco: Never Tobacco Cessation:Ready to Q uit: Not Asked; Counseling Given: Not Answered Alcohol Use Standard Drinks/Week Comments Never 0 (1 standard drink = 0.6 oz pur e alcohol) Depression Answer Date Recorded Patient Health Questionnaire-9 Score 0 10/10/2022 Housing Stability Answer Date Recorded What is your housing situation today? I have brenda lala 08/14/[address] you li ve. Do you have problems with any of the following? None of the above 08/14/2023 Food Insecurity Answer Date Recorded Within the past 12 months, y ou worried that your food would run out before you got money to buy more: Never True 08/14/2023 Within the past 12 months,th e food you bought just didn't last and you didn't have enough money to get more: Never True Transportation Answer Date Recorded In the past 12 months, has l ack of transportation kept you from medical appts, meetings, work or from getting things needed for daily living? No 08/14/2023 Utilities Answer Date Recorded In the past 12 months, has t he electric, gas, oil or water company threatened to shut off services in your home? No 08/14/2023 Depression Answer Date Recorded Patient Health Questionnaire-2 Score 0 08/14/2023 Sex and Gender Information Value Date Recorded Sex Assigned at Male 04/24/2022 10:17 AM EDT Legal Sex Male 10:17 AM EDT Gender Identity Male 04/24/2022 10:17 AM EDT Sexual Orientation Choose not to disclose 2021 10:17 AM EDT Last Filed Vital Signs Vital Sign Reading Time Taken Comments Blood Pressure 155/76 09/13/2023 12:17 PM EDT Pulse 62 09/13/2023 12:17 PM EDT Temperature 36.7 ??C (98 ??F) 09/13/2023 12:17 PM EDT Respiratory Rate 12 09/13/2023 12:17 PM EDT Oxygen Saturation 96% 09/13/2023 12:17 PM EDT Inhaled Oxygen Concentration - - Weight 68 kg (150 lb) 09/13/2023 12:17 PM EDT Height 180.3 cm (5' 11 ) 09/13/2023 12:17 PM EDT Body Mass Index 20.92 09/13/2023 12:17 PM EDT Plan of Treatment Upcoming Encounters Date Type Department Care Team (Late st Contact Info) Description 07/29/2024 10:00 AM EST Office Visit [facility] [address], [place] [id number] Samira Marshall DO [address] [place] [address] Health Maintenance Due Date Last Done Comments CT Colonography 1960 Colonoscopy 1960 Colorectal Cancer Screening 1960 FIT DNA/Cologuard 1960 FIT 1960 FOBT 1960 Sigmoidoscopy 1960 Alcohol/Substance Use Screening 1972 Hepatitis A Vaccines (1 of 2 - Risk 2-dose series) 01/27/1979 Pneumococcal Vaccine: Pediatrics (0 to 5 Years) and At-Risk Patients (6 to 64 Years) (2 of 2 - PCV) 05/03/2011 05/03/2010 RSV Patients and Patients Aged 60 years or older (1 - Risk 60-74 years 1-dose series) 2020 Diabetes: Hemoglobin A1C 04/18/202304/18/ 022, 09/30/2020 COVID-19 Vaccine (1 - 2023-2 5 season) 2024 Influenza Vaccine (#1) 2024 0, 04/17/2018 Depression Screening 08/14/2024 08/14/2023, 10/10/2022 SDOH Screening 08/14/2024 08/14/2023 Tobacco Screening 09/12/2024 09/13/2023 Lipid Panel 04/18/2027 04/18/2022, 09/30/2020 DTaP/Tdap/Td Vaccines (3 - T d or Tdap) 02/18/2029 02/18/2019, 06/01/2011 Zoster Vaccines Completed 01/14/2020, 08/25/2019 HIV Screening Completed 04/18/2022 Hepatitis C Screening Completed 04/18/2022 HIB Vaccines Aged Out No longer eligi ble based on patient's age to complete this topic HPV Vaccines Aged Out No longer eligi ble based on patient's age to complete this topic Hepatitis B Vaccines Aged Out No long er eligible based on patient's age to complete this topic IPV Vaccines Aged Out No longer eligi ble based on patient's age to complete this topic Meningococcal Vaccine Aged Out No rebecca héctor eligible based on patient's age to complete this topic RSV under 20 months Aged Out No longe r eligible based on patient's age to complete this topic Rotavirus Vaccines Aged Out No longer eligible based on patient's age to complete this topic Procedures Procedure Name Priority Date/Time Associated Diagnosis Comments XR HAND 3+ VIEWS RIGHT Routine 07/21/2024 1:04 PM EST XR HAND WRIST RT Routine 06/30/2024 9:[address] KNEE WO CONTRAST LEFT Routine 04/23/2024 7:24 AM EDT ZZZ HISTORICAL HEPATITIS C AB W/REFL TO HCV RNA, QN, PCR Routine 04/18/2022 11:38 AM EDT HIV 1/2 ANTIGEN/ANTIBODY, FOURTH GENERATION W/RFL Routine 04/18/2022 11:38 AM EDT HEMOGLOBIN A1C Routine 04/18/2022 11:38 AM EDT LIPID PANEL, STANDARD Routine 04/18/2022 11:38 AM EDT from Last 3 Months or Most Recently Relevant to Health Maintenance Results * XR Hand 3+ Views Right (07/21/2024 1:04 PM EST) Anatomical Region Laterality Modality Upper Extremities, Hand Right Radiogra phic Imaging 07/21/2024 1:04 PM EST Narrative 07/21/2024 3:23 PM EST ? [facility] ? [address] ?[place] [address] ?XRay Report ? Signed with Addenda ? Patient: Ld Workman ?MR#: [id number] ?? 43 ? : 1960 ?Acct:[id number] ? Age/Sex: 64 / M ?ADM Date: 07/21/24 ? Loc: HO.HOSX ? Attending Dr: Yasir GALVIN ? Ordering Physician: Yasir Tavares ?? Date of Service: 07/21/24 ?? Procedure(s): XR hand RT min 3V ?? Accession Number(s): [id number] ? cc: Yasir Tavares; Samira Marshall DO ?ADDENDUM ? ADDENDUM #1 ? On additional review of the images, there is a minimally displaced ?? fracture of the base of the 4th metacarpal. There is deformity at the ?? base of the 5th metacarpal, consistent with a nondisplaced fracture. A ?? fracture of the base of the 3rd metacarpal was better seen on the prior ?? examination, consistent with healing. ? Electronically signed by: ??Ld Serra MD ??07/21/2024 03:34 PM EST ?? RP ? Addendum Dictated By: ?Ld Serra MD ? Addendum Signed By: ? <Electronically signed by Ld Serra MD in OV> ?07/21/24 1534 ?? Addendum Cosigned By: ? DD/ ? TD/TT: 07/21/24 ? EXAMINATION: ??XR HAND 3 OR MORE VIEWS RIGHT ? HISTORY: M79.641 - Pain in right hand ? COMPARISON: Comparison is made with the prior examination dated ?? 06/30/2024. ? FINDINGS: ? Three views of the right hand are submitted. ??Osseous mineralization is ?? normal. ??There is no fracture or dislocation. ??There is mild ?? osteoarthritis of the DIP joints. ??The soft tissues are unremarkable. ? XR/XR hand RT min 3V ?? IMPRESSION: ? Mild osteoarthritis of the DIP joints. ? Electronically signed by: ??Ld Serra MD ??07/21/2024 03:20 PM EST ?? RP ? Dictated By: ?Ld Serra MD ? Signed By: ?<Electronically signed by Ld Serra MD in OV> ?07/21/24 1520 ? DD/ 1304 ? TD/TT: 07/21/24 1310 ? Aluminum Polisher: ? Procedure Note Donisajacobdezter, Image - 07/21/2024 [facility] [address] [place] [address] [address] [place] [address] XRay Report Signed with Ev Patient: Ld Workman JMR#: [id number] 43 : 1960Acct:[id number] Age/Sex: 64 / MADM Date: 07/21/24 Loc: HO.HOSX Attending Dr: Yasir GALVIN Ordering Physician: Yasir Tavares Date of Service: 07/21/24 Procedure(s): XR hand RT min 3V Accession Number(s): [id number] cc: Yasir Tavares; Samira Marshall DO ADDENDUM ADDENDUM #1 On additional review of the images, there is a minimally displaced fracture of the base of the 4th metacarpal. There is deformity at the base of the 5th metacarpal, consistent with a nondisplaced fracture. A fracture of the base of the 3rd metacarpal was better seen on the prior examination, consistent with healing. Electronically signed by: Ld Serra MD 07/21/2024 03:34 PM EST Addendum Dictated By: Ld Serra MD Addendum Signed By: <Electronically signed by MD Gonzalo in OV> 07/21/24 1534 Addendum Cosigned By: DD/DT: 01/ TD/TT: 07/21/24 EXAMINATION: XR HAND 3 OR MORE VIEWS RIGHT HISTORY: M79.641 - Pain in right hand COMPARISON: Comparison is made with the prior examination dated 06/30/2024. FINDINGS: Three views of the right hand are submitted. Osseous mineralization is normal. There is no fracture or dislocation. There is mild osteoarthritis of the DIP joints. The soft tissues are unremarkable. XR/XR hand RT min 3V IMPRESSION: Mild osteoarthritis of the DIP joints. Electronically signed by: Ld Serra MD 07/21/2024 03:20 PM EST RP Dictated By: Ld Serra MD Signed By: <Electronically signed by Ld Serra MD in OV> 07/21/24 1520 DD/ 1304 TD/TT: 07/21/24 1310 Aluminum Polisher: [facility] External Provider IMG XR PROCEDURES Edited Result - Final * XR HAND WRIST RT (06/30/2024 9:00 AM EST) Anatomical Region Laterality Modality Abdomen Radiographic Gloria ging 06/30/2024 9:00 AM EST Narrative 06/30/2024 9:12 AM EST ? [facility] ?[address] ?[place] [address] ?XRay Report ? Signed ? Patient: Ld Workman ?MR#: [id number] ?? 43 ? : 1960 ?Acct:[id number] ? Age/Sex: 64 / M ?ADM Date: 06/30/24 ? Loc: HO.ED ? Attending Dr: ? Ordering Physician: Dawood eWbb MD ?? Date of Service: 06/30/24 ?? Procedure(s): XR hand wrist RT ?? Accession Number(s): [id number] ? cc: Samira Marshall DO; Dawood Webb MD ? EXAMINATION: ?? XR HAND/WRIST, RIGHT ? CLINICAL INFORMATION: ?? pain ? COMPARISON: ?? None available. ? TECHNIQUE: ?? PA, lateral, and oblique views of the right hand and wrist. ? FINDINGS: ?? There is mild loss of PIP and DIP joint space all digits without bony ?? erosive changes. No fracture or dislocation seen. There are no loose ?? bodies. The soft tissues are normal. ? XR/XR hand wrist RT ?? IMPRESSION: ?? Mild degenerative osteoarthritic changes right hand. No visible acute ?? fracture or dislocation seen. ? Electronically signed by: ??Maximus Kumar MD ??06/30/2024 09:10 AM EST RP ? Dictated By: ?Maximus Kumar MD ? Signed By: ?<Electronically signed by Maximus Kumar MD in OV> ?06/30/24 09 ? DD/ 0900 ? TD/TT: 06/30/24 0905 ? Aluminum Polisher: MSM ? Procedure Note Donotjacobinterpreter, Image - 06/30/[address] [address] XRay Report Signed Patient: Ld Workman JMR#: [id number] 43 : 1960Acct:[id number] Age/Sex: 64 / MADM Date: 06/30/24 Loc: HO.ED Attending Dr: Ordering Physician: Dawood Webb MD Date of Service: 06/30/24 Procedure(s): XR hand wrist RT Accession Number(s): [id number] cc: Samira Marshall DO; Dawood Webb MD EXAMINATION: XR HAND/WRIST, RIGHT CLINICAL INFORMATION: pain COMPARISON: None available. TECHNIQUE: PA, lateral, and oblique views of the right hand and wrist. FINDINGS: There is mild loss of PIP and DIP joint space all digits without bony erosive changes. No fracture or dislocation seen. There are no loose bodies. The soft tissues are normal. XR/XR hand wrist RT IMPRESSION: Mild degenerative osteoarthritic changes right hand. No visible acute fracture or dislocation seen. Electronically signed by: Maximus Kumar MD 06/30/2024 09:10 AM EST Dictated By: Maximus Kumar MD Signed By: <Electronically signed by Maximus Kumar MD in OV> 06/30/24909 DD/ 9 TD/TT: 06/30/24904 Aluminum Polisher: NICKIE [facility] External Provider IMG XR PROCEDURES Edited Result - Final * CT Kne w/o Contrast Left (04/23/2024 7:24 AM EDT) Anatomical Region Laterality Modality Lower Extremities, Knee Left Computed Tomography 04/23/2024 7:24 AM EDT Narrative 05/05/2024 10:40 AM EST ? [facility] ?[address] ?[place] [address] ? CT Scan Report ? Signed ? Patient: Ld Workman ?MR#: [id number] ?? 43 ? : 1960 ?Acct:[id number] ? Age/Sex: 64 / M ?ADM Date: 04/23/24 ? Loc: HO.CT ? Attending Dr: Ethel Cruz PA-C ? Ordering Physician: Ethel Cruz PA-C ?? Date of Service: 04/23/24 ?? Procedure(s): CT knee LT wo IV con ?? Accession Number(s): [id number] ? cc: Ethel Cruz PA-C; Samira Marshall DO ? EXAMINATION: ?? CT KNEE WITHOUT CONTRAST, LEFT ? CLINICAL INFORMATION: ?? Osteoarthritis left knee. ? COMPARISON: ?? X-ray left knee October 2023. CT left knee September 2023. ? TECHNIQUE: ?? CT scan of the left knee is performed with reconstruction imaging ?? performed at the acquisition workstation. ? This CT examination was performed using dose optimization techniques as ?? appropriate, variously including the following: ?? *Automated exposure control ?? *Adjustment of mA and/or kV according to patient size (this includes ?? techniques or standardized protocols for targeted exams where dose is ?? matched to indication/reason for exam; i.e. extremities or head) ?? *Use of iterative reconstruction technique ? DLP: ?? 163 mGy-cm ? FINDINGS: ?? There is chondrocalcinosis most evident in the lateral compartment. ? Medial Compartment: There is persistent nonuniform joint space ?? narrowing with marginal osteophytes indicative of jvew-yj-lzyhpnfg ?? osteoarthritis, unchanged. Subchondral sclerosis also present on both ?? the tibial and femoral side of the joint. ? Lateral Compartment: Chondrocalcinosis. Minimal marginal osteophytes. ?? No joint space narrowing. Findings indicative of minimal arthrosis, ?? unchanged. ? Patellofemoral Compartment: Chondrocalcinosis. Minimal marginal ?? osteophytes. Findings indicative of at least mild osteoarthritis. ?? No significant effusion. ? The remaining bone is normal. Proximal tibiofibular joint is normal ?? other than chondrocalcinosis. ? Surrounding soft tissues are unremarkable. ? CT/CT knee LT wo IV con ?? IMPRESSION: ?? 1. Osteoarthritis unchanged compared with September 2023. ? 2. Chondrocalcinosis unchanged. ? Electronically signed by: ??Eb Way MD ??05/05/2024 10:36 AM ?? EST ? Dictated By: ?Eb Way MD ? Signed By: ?<Electronically signed by Eb Way MD in OV> ?05/05/24 1036 ? DD/ 3 ? TD/TT: 04/23/24744 ? Aluminum Polisher: WG ? Procedure Note Chuck Norris - 05/05/[address] [place] [address] [address] Scan Report Signed Patient: Ld Workman JMR#: [id number] 43 : 1960Acct:[id number] Age/Sex: 64 / MADM Date: 04/23/24 Loc: HO.CT Attending Dr: Ethel Cruz PA-C Ordering Physician: Ethel Cruz PA-C Date of Service: 04/23/24 Procedure(s): CT knee LT wo IV con Accession Number(s): [id number] cc: Ethel Cruz PA-C; Samira Marshall DO EXAMINATION: CT KNEE WITHOUT CONTRAST, LEFT CLINICAL INFORMATION: Osteoarthritis left knee. COMPARISON: X-ray left knee October 2023. CT left knee September 2023. TECHNIQUE: CT scan of the left knee is performed with reconstruction imaging performed at the acquisition workstation. This CT examination was performed using dose optimization techniques as appropriate, variously including the following: *Automated exposure control *Adjustment of mA and/or kV according to patient size (this includes techniques or standardized protocols for targeted exams where dose is matched to indication/reason for exam; i.e. extremities or head) *Use of iterative reconstruction technique DLP: 163 mGy-cm FINDINGS: There is chondrocalcinosis most evident in the lateral compartment. Medial Compartment: There is persistent nonuniform joint space narrowing with marginal osteophytes indicative of jhua-bv-ryxrxrcc osteoarthritis, unchanged. Subchondral sclerosis also present on both the tibial and femoral side of the joint. Lateral Compartment: Chondrocalcinosis. Minimal marginal osteophytes. No joint space narrowing. Findings indicative of minimal arthrosis, unchanged. Patellofemoral Compartment: Chondrocalcinosis. Minimal marginal osteophytes. Findings indicative of at least mild osteoarthritis. No significant effusion. The remaining bone is normal. Proximal tibiofibular joint is normal other than chondrocalcinosis. Surrounding soft tissues are unremarkable. CT/CT knee LT wo IV con IMPRESSION: 1. Osteoarthritis unchanged compared with September 2023. 2. Chondrocalcinosis unchanged. Electronically signed by: Eb Way MD 05/05/2024 10:36 AM EST Dictated By: Eb Way MD Signed By: <Electronically signed by Eb Way MD inOV> 05/05/24 1036 DD/ 0724 TD/TT: 04/23/24 0745 Aluminum Polisher: NORBERTO [facility] External Provider IMG CT PROCEDURES Final Result * HEPATITIS C AB W/REFL TO HCV RNA, QN, PCR (04/18/2022 11:38 AM EDT) HEPATITIS C ANTIBODY NON-REACTI VE NON-REACT CANDELARIO CONVERTED LEGACY LABS INDEX 0.05 <1.00 CONVERTED LEGACY LABS Comment: ?? HCV antibody was non-reactive. There is no laboratory ?? evidence of HCV infection. ?? In most cases, no further action is required. However, if recent HCV exposure is suspected, a test for HCV RNA (test code 34054) is suggested. ?? For additional information please refer to http://[employer]/faq/DSN60c5 (This link is being provided for informational/ educational purposes only.) ?? 04/18/2022 11:3 8 AM EDT Samira Marshall DO HISTORICAL/NON ORDERABLE LAB S Final Result CONVERTED LEGACY LABS * HIV 1/2 ANTIGEN/ANTIBODY,FOURTH GENERATION W/RFL (04/18/2022 11:38 AM EDT) HIV-1/2 ANTIGEN AND ANTIBODIES, 4TH GENERATION W/ REFLEX NON-REACT CANDELARIO NON-REACT CANDELARIO CONVERTED LEGACY LABS Comment: HIV-1 antigen and HIV-1/HIV-2 antibodies were not detected. There is no laboratory evidence of HIV infection. ?? PLEASE NOTE: This information has been disclosed to you from records whose confidentiality may be protected by state law. ??If your state requires such protection, then the state law prohibits you from making any further disclosure of the information without the specific written consent of the person to whom it pertains, or as otherwise permitted by law. A general authorization for the release of medical or other information is NOT sufficient for this purpose. ? For additional information please refer to http://[employer]/faq/KET630 (This link is being provided for informational/ educational purposes only.) ? The performance of this assay has not been clinically validated in patients less than 2 years old. ?? 04/18/2022 11:3 8 AM EDT Samira Marshall DO LAB BLOOD ORDERABLES Final R esult CONVERTED LEGACY LABS * HEMOGLOBIN A1c (04/18/2022 11:38 AM EDT) Hemoglobin A1c 5.5 <5.7 % of total Hgb CONVERTED LEGACY LABS Comment: For the purpose of screening for the presence of diabetes: ?? <5.7% ? Consistent with the absence of diabetes 5.7-6.4% ?Consistent with increased risk for diabetes ? (prediabetes) > or =6.5% ??Consistent with diabetes ?? This assay result is consistent with a decreased risk of diabetes. ?? Currently, no consensus exists regarding use of hemoglobin A1c for diagnosis of diabetes in children. ?? According to [place] Diabetes Association (ADA) guidelines, hemoglobin A1c <7.0% represents optimal control in non- diabetic patients. Different metrics may apply to specific patient populations. ?? Standards of Medical Care in Diabetes(ADA). ?? 04/18/2022 11:3 8 AM EDT Samira Marshall DO LAB BLOOD ORDERABLES Final R esult CONVERTED LEGACY LABS * LIPID PANEL, STANDARD (04/18/2022 11:38 AM EDT) Chol/HDLC Ratio 3.2 <5.0 (calc) CONVERTED LEGACY LABS Cholesterol, Total 132 <200 mg/dL CONVERTED LEGACY LABS HDL Cholesterol 41 > OR = 40 mg/dL CONVERTED LEGACY LABS LDL Cholesterol 77 mg/dL (calc) CONVERTED LEGACY LABS Comment: Reference range: <100 ?? Desirable range <100 mg/dL for primary prevention; ?? <70 mg/dL for patients with CHD or diabetic patients ?? with > or = 2 CHD risk factors. ?? LDL-C is now calculated using the Slick ?? calculation, which is a validated novel method providing ?? better accuracy than the Friedewald equation in the ?? estimation of LDL-C. ?? Donald KAISER et al. HEIDI. 2013;310(19): 9323-5682 ?? (http://education.Handmark/faq/APL766) Non-HDL Cholesterol 91 <130 mg/dL (calc) CONVERTED LEGACY LABS Comment: For patients with diabetes plus 1 major ASCVD risk ?? factor, treating to a non-HDL-C goal of <100 mg/dL ?? (LDL-C of <70 mg/dL) is considered a therapeutic ?? option. Triglycerides 60 <150 mg/dL CONVE RTED LEGACY LABS 04/18/2022 11:3 8 AM EDT Samira Marshall DO LAB BLOOD ORDERABLES Final R esult CONVERTED LEGACY LABS from Last 3 Months or Most Recently Relevant to Health Maintenance Insurance [facility] Care Teams Gas Meter Installer Relationship Specialty Start Date End Date Samira Marshall DO [address] [place] [address] PCP - General Family Medicine 07/12/21
--- OUTSIDE RECORDS SUMMARY | 2024-07-21 17:19 | XMS_ITS | Encounter Summary ---
Author Organization [employer] Address [address] [facility] 7t [place] [address] Care Team Providers Care Lead Enterprise Architect Name Role Phone Joanna Samira Primary Care Provider + [phone] Encounter Details Date Type Department Care Team ([facility] Contact Info) Description 06/30/2024 Orders Only [facility] External Provider, [facility] Social History Tobacco Use Types Packs/Day Years Used Date Smoking Tobacco: Some Days Cigarettes Passive Smoke Exposure: Current Smokeless Tobacco: Never Alcohol Use Standard Drinks/Week Comments Never 0 [...] not to disclose 2021 10:17 AM EDT documented as of this encounter Plan of Treatment Upcoming Encounters Date Type Department Care Team (Late st Contact Info) Description 07/29/2024 10:00 AM EST Office Visit [facility] [address] [facility] [place] [address] Samira Marshall, [address] [place] [address] documented as of this encounter Procedures Procedure Name Priority Date/Time Associated Diagnosis Comments XR HAND 3+ VIEWS RIGHT Routine 07/21/2024 1:04 PM EST XR HAND WRIST RT Routine 06/30/2024 9:00 AM EST documented in this encounter Results * XR Hand 3+ Views Right (07/21/2024 1:04 PM EST) Anatomical Region Laterality Modality Upper Extremities, Hand Right [facility] 07/21/2024 1:04 PM EST Narrative 07/21/2024 3:23 PM EST ? [facility] ? [address] ?[place] [address] ?XRay Report ? Signed with Addenda ? Patient: Ld Workman ?MR#: [id number] ?? 43 ? : 1960 ?Acct:[id number] ? Age/Sex: 64 / M ?ADM Date: //25 ? Loc: HO.HOSX ? Attending Dr: Yasir GALVIN ? Ordering Physician: Yasir Tavares ?? Date of Service: 07/21/24 ?? Procedure(s): XR hand RT min 3V ?? Accession Number(s): [id number] ? cc: Yasir Tavares; Samira Marshall DO [...] ??Ld Serra MD ??07/21/2024 03:34 PM EST ? Addendum Dictated By: ?Ld Serra MD [...] DD/ 1304 ? TD/TT: 07/21/24 1310 ? Bobbin Cleaner: ? Procedure Note Donliliana, Image - 07/21/2024 [facility] [address] [place] [address] [address] [place] [address] XRay Report Signed with Ev Patient: Ld Workman JMR#: [id number] [birth year] : 1960Acct:[id number] Age/Sex: 64 / MADM Date: 07/21/24 Loc: HO.HOSX Attending Dr: Yasir GALVIN Ordering Physician: Yasir Tavares Date of Service: 07/21/24 Procedure(s): XR hand RT min 3V Accession Number(s): [id number] cc: Yasir Tavares; Samira Marshall DO ADDENDUM [...] Ld Serra MD 07/21/2024 03:34 PM EST RP Addendum Dictated By: Ld Serra MD Addendum Signed By: <Electronically signed by MD Gonzalo in OV> 07/21/24 1534 Addendum Cosigned By: DD/ TD/TT: 07/21/24 EXAMINATION: XR HAND 3 OR [...] 07/21/24 1520 DD/ 1304 TD/TT: 07/21/24 1310 Bobbin Cleaner: [facility] External Provider IMG XR PROCEDURES Edited Result - Final * XR HAND WRIST RT (06/30/2024 9:00 AM EST) Anatomical Region Laterality Modality Abdomen Radiographic Gloria ging 06/30/2024 9:00 AM EST Narrative 06/30/2024 9:12 AM EST ? [facility] [facility] ?[address] ?[place] [address] ?XRay Report ? Signed ? Patient: Ji,Ld J ?MR#: [id number] ?? 43 ? : 1960 ?Acct:[id number] ? Age/Sex: 64 / M ?ADM Date: 06/30/24 ? Loc: HO.ED ? Attending Dr: ? Ordering Physician: Dawood Webb MD ?? Date of Service: 06/30/24 ?? Procedure(s): XR hand wrist RT ?? Accession Number(s): [id number] ? cc: Samira Marshall DO; Dawood Webb [...] by Maximus Kumar MD in OV> ?06/30/24 0910 ? DD/ 0900 ? TD/TT: 06/30/249[address] ? Bobbin Cleaner: MSM ? Procedure Note Chuck Norris - 06/30/[address] [address] XRay Report Signed Patient: Ld Workman JMR#: [id number] 43 : 1960Acct:[id number] Age/Sex: 64 / MADM Date: 06/30/24 Loc: HO.ED Attending Dr: Ordering Physician: Dawood Webb MD Date of Service: 06/30/24 Procedure(s): XR hand wrist RT Accession Number(s): [id number] cc: Samira Marshall DO; Dawood Webb MD [...] by: Maximus Kumar MD 06/30/2024 09:10 AM [facility] Dictated By: Maximus Kumar MD Signed By: <Electronically signed by Maximus Kumar MD in OV> 06/30/24 0910 DD/ 09 TD/TT: 06/30/24 0905 Bobbin Cleaner: NICKIE [facility] External Provider IMG XR PROCEDURES Edited Result - Final documented in this encounter Visit Diagnoses Not on filedocumented in this encounter Additional Health Concerns Assessment Noted Time PHQ-9 Depression Total Score: 0 10/11/19 23 11:03 AM EDT documented as of this encounter Care Teams Lead Enterprise Architect Relationship Specialty Start Date End Date Samira Marshall DO [address] [place] [address] PCP - General Family Medicine 07/12/21 documented as of this encounter
--- OUTSIDE RECORDS SUMMARY | 2024-07-21 17:19 | XMS_ITS | Encounter Summary ---
Author Organization [employer] Address [address] [facility] 7t [place] [address] Care Team Providers Care Warp Hanger Name Role Phone Joanna Samira Primary Care Provider [phone] Reason for Visit * Reason Onset Date Comments Appointment Request 07/04/2024 07/04/24-Spok e with patient schedule follow up appt. 07/29/24 at 10am. Mailed appt. Letter. Encounter Details Date Type Department Care Team ([facility] Contact Info) Description 07/04/2024 Telephone [facility] MEDICINE [address] [place] [address] Naomy Omalley [place] Appointment Request (07/04/24-Spoke with patient schedule follow up appt. 07/29/24 at 10am. Mailed appt. Letter.) Social History Tobacco Use Types Packs/Day Years [...] AM EDT documented as of this encounter Miscellaneous Notes * Telephone Encounter - Naomy Omalley [place] - 07/04/2024 4:31 PM EST 07/04/24-Spoke with patient schedule follow up appt. 07/29/24 at 10am. Mailed appt. Letter. documented in this encounter Plan of Treatment Upcoming Encounters Date Type Department Care Team (Late st Contact Info) Description 07/29/2024 10:00 AM EST Office Visit [facility] MEDICINE [address] [place] [address] Samira Marshall DO [address] [place] [address] documented as of this encounter Visit Diagnoses Not on filedocumented in this encounter Additional Health Concerns Assessment Noted Time PHQ-9 Depression Total Score: 0 10/11/19 23 11:03 AM EDT documented as of this encounter Care Teams Warp Hanger Relationship Specialty Start Date End Date Samira Marshall DO [address] [place] [address] PCP - General Family Medicine 07/12/21 documented as of this encounter
--- OUTSIDE RECORDS SUMMARY | 2024-07-21 17:19 | XMS_ITS | Encounter Summary ---
Author Organization [employer] Address [address] [facility] 7t [place] [address] Care Team Providers Care Traveling Engineer Name Role Phone JoannaSamira Primary Care Provider [phone] Encounter Details Date Type Department Care Team (Latest Contact Info) Description 07/04/2024 Travel Social History Tobacco Use Types Packs/Day Years [...] Description 07/29/2024 10:00 AM EST Office Visit [facility] [address] [place] [address] Samira Marshall DO [address] [place] [address] documented as of this encounter Visit Diagnoses Not on filedocumented in this encounter Additional Health Concerns Assessment Noted Time PHQ-9 Depression Total Score: 0 10/11/19 23 11:03 AM EDT documented as of this encounter Care Teams Traveling Engineer Relationship Specialty Start Date End Date Samira Masrhall DO [address] [place] [address] PCP - General Family Medicine 07/12/21 documented as of this encounter
--- OUTSIDE RECORDS SUMMARY | 2024-07-21 17:19 | XMS_ITS | Encounter Summary ---
Author Organization [employer] [facility] Address [address] [place] [address] 7t [place] [address] Care Team Providers Care Log Chipper Name Role Phone Samira Marshall DO Primary Care Provider + [phone] Reason for Visit * Reason Comments Med Refill Encounter Details Date Type Department Care Team (Late Contact Info) Description 08/17/2022 Refill [facility] MEDICINE [address] [place] [address] Sweta Cotton MD [address] [place] [address] Social History Tobacco Use Types Packs/Day Years Used Date Smoking Tobacco: Some Days Cigarettes Passive Smoke Exposure: Current Alcohol Use Standard Drinks/Week Comments Never 0 (1 standard drink = 0.6 oz pur e alcohol) Sex and Gender Information Value Date Recorded Sex Assigned at Male 04/24/2022 10:17 AM EDT Legal Sex Male 10:17 AM EDT Gender Identity Male 04/24/2022 10:17 AM EDT Sexual Orientation Choose not to disclose 2021 10:17 AM EDT documented as of this encounter Plan of Treatment Upcoming Encounters Date Type Department Care Team (Late Contact Info) Description 07/29/2024 10:00 AM EST Office Visit [facility]ICINE [address] [place] [address] Samira Marshall DO [address] [place] [address] documented as of this encounter Visit Diagnoses Not on filedocumented in this encounter Care Teams Log Chipper Relationship Specialty Start Date End Date Samira Marshall DO [address] [place] [address] PCP - General Family Medicine 07/12/21 documented as of this encounter
--- OUTSIDE RECORDS SUMMARY | 2024-07-21 17:19 | XMS_ITS | Encounter Summary ---
Author Organization [employer] [facility] Address [address] [facility] 7t [place] [address] Care Team Providers Care Senior Architect Name Role Phone Samira Marshall DO Primary Care Provider Encounter Details Date Type Department Care Team ([facility] Contact Info) Description 06/26/2022 Orders Only [facility] MEDICINE [address] [place] [address] Ethel Etienne, PharmD [address] [place] [phone] ERRONEOUS ENCOUNTER--DISREGARD (Primary Dx) Social History Tobacco Use Types Packs/Day Years Used Date Smoking Tobacco: Never Assessed Sex and Gender Information Value Date Recorded Sex Assigned at Male 04/24/2022 10:17 AM EDT Legal Sex Male 10:17 AM EDT Gender Identity Male 04/24/2022 10:17 AM EDT Sexual Orientation Choose not to disclose 2021 10:17 AM EDT COVID-19 Exposure Response Date Recorded In the last 10 days, have yo u been in contact with someone who was confirmed or suspected to have Coronavirus/COVID-19? No / Unsure 06/28/2022 11:00 AM EST documented as of this encounter Plan of Treatment Upcoming Encounters Date Type Department Care Team (Late Contact Info) Description 07/29/2024 10:00 AM EST Office Visit [facility] MEDICINE [address] [place] [address] Samira Marshall DO [address] [place] [address] documented as of this encounter Visit Diagnoses Diagnosis ERRONEOUS ENCOUNTER--DISREGARD- Primary documented in this encounter Care Teams Senior Architect Relationship Specialty Start Date End Date Samira Marshall DO [address] [place] [address] PCP - General Family Medicine 07/12/21 documented as of this encounter
== END 2024-07-21 13:27 | disposition home or self-care (01) ==
PROVIDERS: PCP Family Medicine
DX: S62.302A Unspecified fracture of third metacarpal bone, right hand, initial encounter for closed fracture (principal); S62.304A Unspecified fracture of fourth metacarpal bone, right hand, initial encounter for closed fracture
CPT/HCPCS: 99203

== ENCOUNTER → 2024-07-21 13:04 | Outpatient (BNV) | payer MEDICARE, SELFPAY | PROVIDERS: PCP Family Medicine; Visit Provider Radiology Diagnostic Radiology | DX: M79.641 Pain in right hand (principal) | CPT/HCPCS: 73130 ==

== ENCOUNTER → 2024-07-30 09:51 | Outpatient (BNVA) | payer OTHER, SELFPAY | PROVIDERS: PCP Family Medicine; Visit Provider Internal Medicine | DX: I25.10 Atherosclerotic heart disease of native coronary artery without angina pectoris (principal); I35.1 Nonrheumatic aortic (valve) insufficiency; I35.0 Nonrheumatic aortic (valve) stenosis; R94.31 Abnormal electrocardiogram [ECG] [EKG] | CPT/HCPCS: 93005; 99212 ==

== ENCOUNTER 2024-08-18 09:37 | Outpatient (REF) | payer MEDICARE, SELFPAY ==
--- NOTE | ~2024-08-18 | XR_ITS ---
EXAMINATION: XR HAND, RIGHT CLINICAL INFORMATION: M79.641 - Pain in right hand COMPARISON: None available. TECHNIQUE: PA, lateral, and oblique views of the right hand. FINDINGS: Subacute healing fractures of the proximal third and fourth metacarpals. There is periosteal new bone formation seen abutting the fracture margins of both fractures. There is a probable minimally displaced fracture of the base of the fifth metacarpal. No definite periostitis or new bone formation evident. This is not a definitive subacute fracture, and could be old. Continued imaging follow-up recommended. Probable old fracture distal fifth metacarpal. No new fractures. Stable alignment. 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 Carpal bones appear intact and normally aligned. Improving soft tissue swelling. XR/XR hand RT min 3V IMPRESSION: 1. Healing fractures of the third and fourth proximal metacarpals. Stable alignment. 2. Possible but not definitive subacute nondisplaced fracture base of fifth metacarpal. This may be old. Continued imaging follow-up recommended. 3. Healed fracture distal fifth metacarpal. 4. Improved soft tissue swelling. Electronically signed by: Michael Tellez MD 08/19/2024 12:18 PM EST
--- OUTSIDE RECORDS SUMMARY | 2024-08-18 10:26 | XMS_ITS | Encounter Summary ---
Author Organization [employer] Address 75 [facility] 7t [place] [address] Care Team Providers Care Paper Cutter Name Role Phone Samira Marshall DO Primary Care Provider [phone] Encounter Details Date Type Department Care Team ([facility] Contact Info) Description 06/26/2022 Orders Only [facility] MEDICINE 230 [place] [address] Ethel Etienne, CarlaD 230 [place] [address] ERRONEOUS ENCOUNTER--DISREGARD (Primary Dx) Social History Tobacco [...] as of this encounter Plan of Treatment Not on file documented as of this encounter Visit Diagnoses Diagnosis ERRONEOUS ENCOUNTER--DISREGARD- Primary documented in this encounter Care Teams Paper Cutter Relationship Specialty Start Date End Date Samira Marshall DO 230 [place], [place] [phone] PCP - General Family Medicine 07/12/21 documented as of this encounter
--- OUTSIDE RECORDS SUMMARY | 2024-08-18 10:26 | XMS_ITS | Clinical Summary ---
Author Organization [employer] Address [address] [facility] 7t [place] [address] Care Team Providers Care Wildlife Rehabilitator Name Role Phone JoannaSamira Primary Care Provider [...] Encounters Date Type Department Care Team Description 07/30/2024 Telephone [facility] 230 [place] [address] Samira Marshall DO Results 07/28/2024 Telephone [facility] [address] [place] [address] Samira Marshall DO insurance 07/04/2024 Telephone [facility] 230 [place] [address] Naomy Omalley [place] Appointment Request (07/04/24-Spoke with patient schedule follow up appt. 07/29/24 at 10am. Mailed appt. Letter.) 07/04/2024 Travel 06/30/2024 Orders Only [facility] External Provider, [facility] 06/06/2024 Telephone [facility] MEDICINE [address] [place] [address] Samira Marshall, Nurse Triage from Last 3 Months Immunizations Name Administration [...] 09/13/2023 12:17 PM EDT Plan of Treatment Health Maintenance Due Date Last Done Comments CT Colonography 1960 Colonoscopy 1960 Colorectal Cancer Screening 1960 FIT DNA/Cologuard 1960 FIT 1960 FOBT 1960 Sigmoidoscopy 1960 Alcohol/Substance Use Screening 1972 Hepatitis A Vaccines (1 of 2 - Risk 2-dose series) 01/27/1979 Pneumococcal Vaccine: 50+ Years (2 of 2 - PCV) 05/03/2011 05/03/2010 RSV Patients and Patients Aged 60 years or older (1 - Risk 60-74 years 1-dose series) 2020 Diabetes: Hemoglobin A1C 04/18/2023 022, 09/30/2020 COVID-19 Vaccine (1 - 2023-2 5 season) 2024 Influenza Vaccine (#1) 2024 , 04/17/2018 Depression Screening 08/14/2024 08/14/2023, 10/10/2022 SDOH [...] WRIST RT Routine 06/30/2024 9:00 AM EST ZZZ HISTORICAL HEPATITIS C AB W/REFL TO [...] Region Laterality Modality Upper Extremities, Hand Right [facility] Imaging 07/21/2024 1:04 PM EST Narrative 07/21/2024 3:23 PM EST ? [facility] ? [address] ?[place] [address] ?XRay Report ? Signed with Addenda ? Patient: Ji,Ld Kelly ?MR#: [id number] ?? 43 ? : 1960 ?Acct:[id number] ? Age/Sex: 64 / M ?ADM Date: 01/27/25 ? Loc: HO.HOSX ? Attending Dr: Yasir GALVIN ? Ordering Physician: Yasir Tavares ?? Date of Service: 07/21/24 ?? Procedure(s): XR hand RT min 3V ?? Accession Number(s): [id number] ? cc: Yasir Tavares; Samira Marshall DO [...] DD/ 1304 ? TD/TT: 07/21/24 1310 ? Log Sorter: ? Procedure Note Chuck Norris - 07/21/2024 [facility] [address] [facility] [address] [place] [address] XRay Report Signed with Addenda Patient: Ld Workman JMR#: [id number] 43 : 1960Acct:[id number] Age/Sex: 64 / MADM Date: 07/21/24 Loc: HO.HOSX Attending Dr: Yasir GALVIN Ordering Physician: Yasir Tavares Date of Service: 07/21/24 Procedure(s): XR hand RT min 3V Accession Number(s): [id number] cc: Yasir Tavares; Samira Marshall DO ADDENDUM [...] 07/21/24 1520 DD/ 1304 TD/TT: 07/21/24 1310 Log Sorter: us [facility] External Provider IMG XR PROCEDURES Edited Result - Final * XR HAND WRIST RT (06/30/2024 9:00 AM EST) Anatomical Region Laterality Modality Abdomen Radiographic Gloria ging 06/30/2024 9:00 AM EST Narrative 06/30/2024 9:12 AM EST ? [facility] ?[address] ?[place] [address] ?XRay Report ? Signed ? Patient: Ji,Ld Kelly ?MR#: [id number] ?? 43 ? : 1960 ?Acct:[id number] ? Age/Sex: 64 / M ?ADM Date: 06/30/24 ? Loc: HO.ED ? Attending Dr: ? Ordering Physician: Dawood Webb MD ?? Date of Service: 06/30/24 ?? Procedure(s): XR hand wrist RT ?? Accession Number(s): [id number] ? cc: Samira Marshall DO; Dawood Webb [...] 09:10 AM EST RP ? Dictated By: ?Stacy,Maximus S MD ? Signed By: ?<Electronically signed by Maximus S MD Stacy in OV> ?06/30/24 0910 ? DD/ 0900 ? TD/TT: 06/30/24 0905 ? Log Sorter: MSM ? Procedure Note Myrna, Chuck - 06/30/[address] [place] [address] XRay Report Signed Patient: Ld Workman JMR#: [id number] 43 : 1960Acct:[id number] Age/Sex: 64 / MADM Date: 06/30/24 Loc: HO.ED Attending Dr: Ordering Physician: Dawood Webb MD Date of Service: 06/30/24 Procedure(s): XR hand wrist RT Accession Number(s): [id number] cc: Samira Marshall DO; Dawood Webb MD [...] by: Maximus Kumar MD 06/30/2024 09:10 AM [facility] Dictated By: Maximus Kumar MD Signed By: <Electronically signed by Maximus Kumar MD in OV> 06/30/24 0910 DD/ 0900 TD/TT: 06/30/24 0905 Log Sorter: NICKIE [facility] External Provider IMG XR PROCEDURES Edited Result - Final * HEPATITIS C AB W/REFL TO HCV [...] a test for HCV RNA (test code 05926) is suggested. ?? For additional information please refer to http://education.ToutApp/faq/WJE66l5 (This link is being provided for informational/ [...] ? For additional information please refer to http://education.ToutApp/faq/DFV968 (This link is being provided for informational/ [...] of diabetes in children. ?? According to [place] Diabetes Association (ADA) guidelines, hemoglobin A1c <7.0% [...] ?? LDL-C is now calculated using the Donald-Cervantes ?? calculation, which is a validated novel method providing ?? better accuracy than the Friedewald equation in the ?? estimation of LDL-C. ?? Donald KAISER et al. HEIDI. 2013;310(19): 8606-4241 ?? (http://education.Auto Mute.com/faq/UOD101) Non-HDL Cholesterol 91 <130 mg/dL (calc) CONVERTED [...] Most Recently Relevant to Health Maintenance Insurance MEDICARE Care Teams Wildlife Rehabilitator Relationship Specialty Start Date End Date Samira Marshall DO [address] [place] [address] [place] [address] PCP - General Family Medicine 07/12/21
--- OUTSIDE RECORDS SUMMARY | 2024-08-18 10:27 | XMS_ITS | Encounter Summary ---
Author Organization [employer] Address [address] [facility] 7t [place] [address] Care Team Providers Care Clinical Data Programmer Name Role Phone Samira Marshall DO Primary Care Provider + [phone] Reason for Visit * Reason Onset Date Comments Results 07/30/2024 Encounter Details Date Type Department Care Team ([facility] Contact Info) Description 07/30/2024 Telephone [facility] MEDICINE 230 [place], [place] [phone] Samira Marshall DO 230 [place], [place] [phone] Results Social History Tobacco Use Types Packs/Day Years [...] encounter Miscellaneous Notes * Telephone Encounter - Fatmata Preciado RN - 07/30/2024 3:24 PM EST TC placed to Edilia at [facility] who request most recent blood work results for Lipids, CBC and CMP. Pt most recent labs are from March of 2022 but Edilia was agreeable to having them sent. Results faxed to [phone] * Telephone Encounter - Fatmata Preciado RN - 07/30/2024 11:17 AM EST TC placed to Edilia at [facility] and left a VM to call back [facility] with direct extension given for the Red Team nurse * Telephone Encounter - Matias De La Vega - 07/30/2024 10:54 AM EST Tc from Edilia with [facility] requesting pt's most recent lab results to be faxed. Edilia further states results need to be faxed urgently. If any questions you can contact Edilia at [phone]. documented in this encounter Plan of Treatment Not on file documented as of this encounter Visit Diagnoses Not on filedocumented in this encounter Additional Health Concerns Assessment Noted Time PHQ-9 Depression Total Score: 0 10/11/19 23 11:03 AM EDT documented as of this encounter Care Teams Clinical Data Programmer Relationship Specialty Start Date End Date Samira Marshall DO [address] [place] [address] PCP - General Family Medicine 07/12/21 documented as of this encounter
--- OUTSIDE RECORDS SUMMARY | 2024-08-18 10:27 | XMS_ITS | Encounter Summary ---
Author Organization [employer] Address [address] [facility] 7t [place] [address] Care Team Providers Care Director Park Name Role Phone Samira Marshall DO Primary Care Provider + [phone] Reason for Visit * Reason Onset Date Comments insurance 07/28/2024 Encounter Details Date Type Department Care Team ([facility] Contact Info) Description 07/28/2024 Telephone [facility] MEDICINE 230 [place], [place] [phone] Samira Marshall DO [address] [place], [place] [phone] insurance Social History Tobacco Use Types Packs/Day Years [...] encounter Miscellaneous Notes * Telephone Encounter - Tricia Saenz - 07/28/2024 1:06 PM EST Called pt to inform them that there insurance is inactive , pt said they have medicare I ask pt formember id pt said he will bring the card with him tomorrow since he doesn't have it [facility] him at [facility]. documented in this encounter Plan of Treatment Not on file documented as of this encounter Visit Diagnoses Not on filedocumented in this encounter Additional Health Concerns Assessment Noted Time PHQ-9 Depression Total Score: 0 10/11/19 23 11:03 AM EDT documented as of this encounter Care Teams Director Park Relationship Specialty Start Date End Date Samira Marshall DO [address] [place] [address] PCP - General Family Medicine 07/12/21 documented as of this encounter
--- OUTSIDE RECORDS SUMMARY | 2024-08-18 10:27 | XMS_ITS | Encounter Summary ---
Author Organization [employer] Address [address] [facility] 7t [place] [address] Care Team Providers Care Energy Trading Analyst Name Role Phone Samira Marshall DO Primary Care Provider [phone] Reason for Visit * Reason Comments Med Refill Encounter Details Date Type Department Care Team ([facility] st Contact Info) Description 08/17/2022 Refill [facility] MEDICINE 230 [place], [place] [phone] Sweta Cotton MD 230 [place] [address] Social History Tobacco Use Types Packs/Day Years [...] on filedocumented in this encounter Care Teams Energy Trading Analyst Relationship Specialty Start Date End Date Samira Marshall DO [address] [place] [address] PCP - General Family Medicine 07/12/21 documented as of this encounter
== END 2024-08-18 09:38 | disposition home or self-care (01) ==
LOC: HO.HOSX 09:37
DX: M79.641 Pain in right hand (principal); S62.304D Unspecified fracture of fourth metacarpal bone, right hand, subsequent encounter for fracture with routine healing; S62.302D Unspecified fracture of third metacarpal bone, right hand, subsequent encounter for fracture with routine healing
CPT/HCPCS: 73130; 99212

== ENCOUNTER 2024-08-18 10:21 | Outpatient (AMB) | payer MEDICARE, SELFPAY ==
[2024-08-18 10:41] VITALS: BMI 19.7
--- NOTE | 2024-08-18 10:41 | A.OFFVIS_ITS ---
Vital Signs 08/18/24 10:41 Height 5 ft 11 in Weight 141 lb BMI 19.7 Intake Visit Reasons: OV - Right 3rd & 4th MC Fractures 06/29/24 - w/ XR Intake Note: Ld is a 64 year old right hand dominant male who presents today for a follow up for his Right 3rd & 4th metacarpal fractures. On 06/29/24 he was running after his granddaughter when he hit his hand on the wall. There is question of a possible 5th metacarpal fracture as well. He was provided with a velcro wrist brace and instructed to do mile taping of the 3rd and 4th fingers. Currently states he still has pain, he has not been able to mile tape due to tape falling off. Still pain to cherry picker operator a coffee mug, soreness by his wrist and at base of 3rd & 4th MC. Denies numbness or tingling. Xrays updated in office. Allergies No Known Allergies [No Known Allergies*] Allergy (Verified 08/18/24 10:43) HPI HPI OV - Right 3rd & 4th MC Fractures 06/29/24 - w/ XR: Details: Ld is a 64 year old right hand dominant male who presents today for a follow up for his Right 3rd & 4th metacarpal fractures. On 06/29/24 he was running after his granddaughter when he hit his hand on the wall. There is question of a possible 5th metacarpal fracture as well. He was provided with a velcro wrist brace and instructed to do mile taping of the 3rd and 4th fingers. Currently states he still has pain when moving the 3rd and 4th digits, but this pain is not at the level fracture, but rather at the level of the MCP joints., he has not been able to mile tape due to tape falling off. Still pain to cherry picker operator a coffee mug, soreness by his wrist and at base of 3rd & 4th MC. Denies numbness or tingling. Xrays updated in office. [facility] Medical History Carpal tunnel syndrome on right Personal history of nicotine dependence Non-rheumatic aortic stenosis Nonrheumatic aortic valve regurgitation ST elevation myocardial infarction (STEMI) of inferior wall Atherosclerotic cardiovascular disease Surgical History (Reviewed 08/18/24 @ 10:44 by Roya Fitzpatrick [facility]) History of foot surgery (~10/2013) History of right inguinal hernia repair (~04/2015) History of left inguinal hernia repair (~03/2016) History of heart artery stent (~04/2012) Family History Father CVD (cardiovascular disease) Mother CVD (cardiovascular disease) Social History (Updated 08/18/24 @ 10:44 by KATEY Jaramillo) Alcohol intake: current Comment: social Patient Tobacco Use Status: Former Tobacco user Current occupational status: retired Current occupation: rt hand Review of Systems Const All systems reviewed & are unremarkable except as noted in HPI and below Physical Exam Vital Signs: BMI result Body Mass Index 19.7 Extrem Other: Patient is alert, oriented, and in no acute distress. Neuro: Normal sensation of the tips of all digits of the right hand at this time Vascular: Cap refill brisk Pain: Patient reports no tenderness to palpation over the 3rd and 4th metacarpals in the dorsal aspect of the right hand Mild pain with range of motion of the 4th 5th digits of the right hand, with flexion at the MCP joints ROM: Patient was able to make a closed fist and extend all digits of the right hand fully and without difficulty Skin: No lacerations or abrasions. General: There is noted to be a visible and palpable bump on the dorsal aspect of the patient's right hand at the level of fracture No ecchymosis, erythema, or evidence of infection. Psych: Appears grossly normal Affect normal Attitude cooperative Results Reviewed Results Reviewed: X-rays obtained in the office today and independently reviewed by me, Yasir Tavares PA-C, demonstrate nondisplaced fractures of the 3rd metacarpal base, 4th metacarpal shaft, as well as a questionable area of lucency in the 5th metacarpal base concerning for potential nondisplaced fracture with evidence of interval bony healing Assessment & Plan Assessment & Plan (1) Fracture of fourth metacarpal bone of right hand: Code(s): S62.304A - Unspecified fracture of fourth metacarpal bone, right hand, initial encounter for closed fracture Category: Medical (2) Fracture of third metacarpal bone of right hand: Code(s): S62.302A - Unspecified fracture of third metacarpal bone, right hand, initial encounter for closed fracture Category: Medical Plan 1. Right 3rd metacarpal base fracture 2. Right 4th metacarpal proximal shaft fracture 3. Concern for potential nondisplaced 5th metacarpal base fracture Date of injury 06/29/2024 Patient is educated about this injury Patient patient is educated about the typical recovery course At this time, patient was informed that he should only wear the Velcro wrist splint in high-risk situation such as walking on snow or ice, or going to a concert. Patient was advised he should continue mile taping with daytime activities, does not have to do this while at rest Patient was amenable to this plan Patient will follow-up in 4 weeks with repeat x-rays for reassessment, sooner with any acute concerns Orders: Orders XR hand RT min 3V Today M79.641 - Pain in right hand OT Evaluation and Treatment Today S62.302A - Unspecified fracture of third metacarpal bone, right hand, initial encounter for closed fracture, S62.304A - Unspecified fracture of fourth metacarpal bone, right hand, initial encounter for closed fracture Coding Level of Care Code Global (80407) Diagnoses Fracture of fourth metacarpal bone of right hand S62.304A Fracture of third metacarpal bone of right hand S62.302A
--- OUTSIDE RECORDS SUMMARY | 2024-08-18 11:34 | XMS_ITS | Encounter Summary ---
Author Organization [employer] Address 75 [facility] 7t [place] [address] Care Team Providers Care Core Man Name Role Phone Samira Marshall DO Primary Care Provider + [phone] Reason for Visit * Reason Onset Date Comments Results 07/30/2024 Encounter Details Date Type Department Care Team ([facility] Contact Info) Description 07/30/2024 Telephone [facility] MEDICINE 230 [place], [place] [phone] Samira Marshall DO 230 [place], [place] [phone] Results Social History Tobacco Use Types Packs/Day [...] PM EST TC placed to Edilia at [facility] who request most recent blood work results for Lipids, CBC and CMP. Pt most recent labs are from March of 2022 but Edilia was agreeable to having them sent. Results faxed to [phone] * Telephone Encounter - Fatmata Preciado RN - 07/30/2024 11:17 AM EST TC placed to Edilia at [facility] and left a VM to call back [facility] with direct extension given for the Red Team nurse * Telephone Encounter - Matias De La Vega - 07/30/2024 10:54 AM EST Tc from Edilia with [facility] requesting pt's most recent lab results to be faxed. Edilia further states results need to be faxed urgently. If any questions you can contact Edilia at [phone]. documented in this encounter Plan of Treatment Not on file documented as of this encounter Visit Diagnoses Not on filedocumented in this encounter Additional Health Concerns Assessment Noted Time PHQ-9 Depression Total Score: 0 10/11/19 23 11:03 AM EDT documented as of this encounter Care Teams Core Man Relationship Specialty Start Date End Date Samira Marshall DO [address] [place] [address] PCP - General Family Medicine 07/12/21 documented as of this encounter
--- OUTSIDE RECORDS SUMMARY | 2024-08-18 11:34 | XMS_ITS | Encounter Summary ---
Author Organization [employer] Address [address] [facility] 7t [place] [address] Care Team Providers Care Roof Service Technician Name Role Phone Samira Marshall DO Primary Care Provider [phone] Encounter Details Date Type Department Care Team ([facility] Contact Info) Description 06/26/2022 Orders Only [facility] MED[facility]INE [address] [place] [address] Ethel Etienne, CarlaD [address] [place] [address] ERRONEOUS ENCOUNTER--DISREGARD (Primary Dx) Social History Tobacco [...] Primary documented in this encounter Care Teams Roof Service Technician Relationship Specialty Start Date End Date Samira Marshall DO [address] [place], [place] [phone] PCP - General Family Medicine 07/12/21 documented as of this encounter
--- OUTSIDE RECORDS SUMMARY | 2024-08-18 11:34 | XMS_ITS | Clinical Summary ---
Author Organization [employer] Address [address] [facility] 7t [place] [address] Care Team Providers Care Separator Operator [employer]ats Name Role Phone JoannaSamira Primary Care Provider [phone] Allergies No known active allergies Medications nicotine [...] Type Department Care Team Description 07/30/2024 Telephone [facility] [address] [place] [address] Samira Marshall DO Results 07/28/2024 Telephone [facility] [address] [place] [address] Samira Marshall DO insurance 07/04/2024 Telephone [facility] [address] [place] [address] Naomy Omalley [place] Appointment Request (07/04/24-Spoke with patient schedule follow up appt. 07/29/24 at 10am. Mailed appt. Letter.) 07/04/2024 Travel 06/30/2024 Orders Only [facility] External Provider, [facility] 06/06/2024 Telephone [facility] [address] [place] [address] Samira Marshall, Nurse Triage from Last 3 [...] Region Laterality Modality Upper Extremities, Hand Right RadioWho is Undercover Spya [facility] Imaging 07/21/2024 1:04 PM EST Narrative 07/21/2024 3:23 PM EST ? [facility] ? [address] ?[place] [address] ?XRay Report ? Signed with Addenda ? Patient: Ji,Ld Kelly ?MR#: [id number] ?? 43 ? : 1960 ?Acct:[id number] ? Age/Sex: 64 / M ?ADM Date: 01/27/25 ? Loc: HO.HOSX ? Attending Dr: Yasir GALVIN ? Ordering Physician: Yasir Tavares ?? Date of Service: 07/21/24 ?? Procedure(s): XR hand RT min 3V ?? Accession Number(s): [id number] ? cc: Yasir Tavares; Samira Marshall DO [...] DD/ 1304 ? TD/TT: 07/21/24 1310 ? Lead Vulcanizing Operator: ? Procedure Note Chuck Norris - 07/21/2024 [facility] [address] [facility] [address] [place] [address] XRay Report Signed with Addenda Patient: Ld Workman JMR#: [id number] 43 : 1960Acct:[id number] Age/Sex: 64 / MADM Date: 07/21/24 Loc: HO.HOSX Attending Dr: Yasir GALVIN Ordering Physician: Yasir Tavares Date of Service: 07/21/24 Procedure(s): XR hand RT min 3V Accession Number(s): [id number] cc: Yasir Tavares; Samira Marshall DO ADDENDUM [...] 07/21/24 1520 DD/ 1304 TD/TT: 07/21/24 1310 Lead Vulcanizing Operator: us [facility] External Provider IMG XR PROCEDURES Edited Result - Final * XR HAND WRIST RT (06/30/2024 9:00 AM EST) Anatomical Region Laterality Modality Abdomen Radiographic Gloria ging 06/30/2024 9:00 AM EST Narrative 06/30/2024 9:12 AM EST ? [facility] ?[address] ?[place] [address] ?XRay Report ? Signed ? Patient: Ji,Ld Kelly ?MR#: [id number] ?? 43 ? : 1960 ?Acct:[id number] ? Age/Sex: 64 / M ?ADM Date: 06/30/24 ? Loc: HO.ED ? Attending Dr: ? Ordering Physician: Dawood Webb MD ?? Date of Service: 06/30/24 ?? Procedure(s): XR hand wrist RT ?? Accession Number(s): [id number] ? cc: Samira Marshall DO; Dawood Webb [...] DD/ 0900 ? TD/TT: 06/30/24 0905 ? Lead Vulcanizing Operator: MSM ? Procedure Note Myrna, Chuck - 06/30/[address] [place] [address] XRay Report Signed Patient: Ld Workman JMR#: [id number] 43 : 1960Acct:[id number] Age/Sex: 64 / MADM Date: 06/30/24 Loc: HO.ED Attending Dr: Ordering Physician: Dawood Webb MD Date of Service: 06/30/24 Procedure(s): XR hand wrist RT Accession Number(s): [id number] cc: Samira Marshall DO; Dawood Webb MD [...] 06/30/24 0910 DD/ 0900 TD/TT: 06/30/24 0905 Lead Vulcanizing Operator: NICKIE [facility] External Provider IMG XR PROCEDURES Edited Result [...] a test for HCV RNA (test code 81839) is suggested. ?? For additional information please refer to http://education.Pretty in my Pocket (PRIMP)/faq/ZVO45c6 (This link is being provided for informational/ [...] ? For additional information please refer to http://education.[employer] in [employer]ocket (PRIMP)/faq/BOE647 (This link is being provided for informational/ [...] of diabetes in children. ?? According to [place] Diabetes Association (ADA) guidelines, hemoglobin A1c <7.0% [...] ?? Donald KAISER et al. HEIDI. 2013;310(19): 1296-1813 ?? (http://education.Mashwork.com/faq/RNP925) Non-HDL Cholesterol 91 <130 mg/dL (calc) CONVERTED [...] to Health Maintenance Insurance MEDICARE Care Teams Separator Operator Shellfish Meats Relationship Specialty Start Date End Date Samira Marshall DO [address] [place] [address] [place] [address] PCP - General Family Medicine 07/12/21
--- OUTSIDE RECORDS SUMMARY | 2024-08-18 11:34 | XMS_ITS | Encounter Summary ---
Author Organization [employer] Address [address] [facility] 7t [place] [address] Care Team Providers Care Baker Second Name Role Phone Samira Marshall DO Primary Care Provider + [phone] Reason for Visit * Reason Onset Date Comments insurance 07/28/2024 Encounter Details Date Type Department Care Team ([facility] Contact Info) Description 07/28/2024 Telephone [facility] [address] [place], [place] [phone] Samira Marshall DO [address] [place], [place] [phone] insurance Social History Tobacco Use Types Packs/Day [...] he doesn't have it [facility] him at [facility]. documented in this encounter Plan of Treatment Not on file documented as of this encounter Visit Diagnoses Not on filedocumented in this encounter Additional Health Concerns Assessment Noted Time PHQ-9 Depression Total Score: 0 10/11/19 23 11:03 AM EDT documented as of this encounter Care Teams Baker Second Relationship Specialty Start Date End Date Samira Marshall DO [address] [place] [address] PCP - General Family Medicine 07/12/21 documented as of this encounter
--- OUTSIDE RECORDS SUMMARY | 2024-08-18 11:34 | XMS_ITS | Encounter Summary ---
Author Organization [employer] Address [address] [facility] 7t [place] [address] Care Team Providers Care Network Diagnostic Support Specialist Name Role Phone Samira Marshall DO Primary Care Provider [phone] Reason for Visit * Reason Comments Med Refill Encounter Details Date Type Department Care Team ([facility] st Contact Info) Description 08/17/2022 Refill [facility] [address] [place], [place] [phone] Sweta Cotton MD [address] [place] [address] Social History Tobacco Use Types Packs/Day Years [...] on filedocumented in this encounter Care Teams Network Diagnostic Support Specialist Relationship Specialty Start Date End Date Samira Marshall DO [address] [place] [address] PCP - General Family Medicine 07/12/21 documented as of this encounter
== END 2024-08-18 10:56 | disposition home or self-care (01) ==
PROVIDERS: PCP Family Medicine
DX: S62.302A Unspecified fracture of third metacarpal bone, right hand, initial encounter for closed fracture (principal); S62.304A Unspecified fracture of fourth metacarpal bone, right hand, initial encounter for closed fracture
CPT/HCPCS: 99213

== ENCOUNTER → 2024-08-18 10:22 | Outpatient (BNV) | payer MEDICARE, SELFPAY | PROVIDERS: Visit Provider Radiology Diagnostic Radiology | DX: M79.641 Pain in right hand (principal) | CPT/HCPCS: 73130 ==

== ENCOUNTER 2024-09-15 08:20 | Outpatient (REF) | payer MEDICARE, SELFPAY | END 2024-09-15 08:21 | disposition home or self-care (01) | LOC: HO.HOSX 08:20 | DX: Z13.89 Encounter for screening for other disorder (principal) ==

== ENCOUNTER 2025-02-03 10:23 | Outpatient (AMB) | payer MEDICARE, SELFPAY ==
[2025-02-03 10:27] VITALS: BP 126/76; PULSE 60; BMI 19.3
--- NOTE | 2025-02-03 10:27 | A.OFFVIS_ITS ---
Vital Signs 02/03/25 10:27 Height 5 ft 11 in Weight 138 lb 7.205 oz BMI 19.3 BP 126/76 Blood Pressure Location Lt brachial Position Sitting Pulse 60 Pulse Source Pulse Oximeter Intake Visit Reasons: 6m follow up Dispatch Clerk Required: No Accompanied by: Self / Same As Patient Allergies No Known Allergies (No Known Allergies*) Allergy (Verified 08/18/24 10:43) Medication List - Last Reconciled 02/03/25 by Jericho Ribeiro MD aspirin 81 mg PO DAILY atorvastatin 80 mg PO DAILY celecoxib 200 mg PO BID metoprolol tartrate 25 mg PO BID nitroglycerin 0 mg sublingual HPI Comments Details: Ld returns for follow-up regarding coronary disease and aortic regurgitation. To recall, he has a history of inferior STEMI from 2011. He received bare metal stent to the mid circumflex. He states that he feels fine. He is walking several miles a day with no issues. Also does jobs in construction lifting heavy weights and has not had any chest pains. In 2023, he underwent a stress echocardiogram but markedly suboptimal heart rate response in spite of holding the morning beta-piero. He could not do the nuclear stress because of claustrophobia. Then we ordered a coronary CTA but he could not do that either as he is worried about the cost. Overall, he states he feels well. [facility], [facility] Medical History Carpal tunnel syndrome on right Personal history of nicotine dependence Non-rheumatic aortic stenosis Nonrheumatic aortic valve regurgitation ST elevation myocardial infarction (STEMI) of inferior wall Atherosclerotic cardiovascular disease Surgical History History of foot surgery (~10/2013) History of right inguinal hernia repair (~04/2015) History of left inguinal hernia repair (~03/2016) History of heart artery stent (~04/2012) Family History Father CVD (cardiovascular disease) Mother CVD (cardiovascular disease) Social History (Updated 08/18/24 @ 10:44 by KATEY Jaramillo) Alcohol intake: current Comment: social Patient Tobacco Use Status: Former Tobacco user Current occupational status: retired Current occupation: rt hand Review of Systems Const Denies daytime sleepiness, Denies difficulty sleeping, Denies snoring, Denies stops breathing during sleep and Denies weakness Card Denies chest pain, Denies rapid heart rate, Denies irregular heart rhythm, Denies claudication, Denies leg edema, Denies lightheadedness, Denies palpitations, Denies dyspnea, Denies dyspnea on exertion, Denies orthopnea, Denies paroxysmal nocturnal dyspnea and Denies slow heart rate Resp Denies cough, Denies dyspnea, Denies dyspnea on exertion and Denies snoring GI Reports no additional complaints, Denies hematochezia, Denies change in stool character and Denies dyspepsia Musc Denies abnormal gait, Denies muscle weakness and Denies numbness Neuro Denies abnormal gait, Denies numbness and Denies weakness Endo Denies palpitations Physical Exam Vital Signs: Last Vital Signs Pulse 60 02/03/25 10:27 BP 126/76 02/03/25 10:27 BMI result Body Mass Index 19.3 Const General: comfortable and no acute distress Orientation/consciousness: patient oriented x3 HEENT Other: Unremarkable Head: Yes normal to inspection Neck Neck: Yes normal visual inspection Chest Chest palpation & inspection: normal inspection of the chest Resp Auscultation: rhonchi and diminished lung sounds Cardio Palpation: normal PMI Heart sounds: S1 normal heart sound present, S2 normal heart sound present, no gallops, Murmur heart sound present systolic II/ and no rubs GI Palpation (GI): Soft to palpation Back/Spine/Pelvis Other: unremarkable Skin General skin exam: no rashes or lesions noted Neuro General: patient oriented x3 Extrem General: Yes normal to inspection Psych Mental Status: mental status grossly normal Assessment & Plan Assessment & Plan (1) Atherosclerotic cardiovascular disease: Code(s): I25.10 - Atherosclerotic heart disease of [place] coronary artery without angina pectoris Category: Medical Plan: Unclear quite active with no angina. Nuclear stress test could not be completed because of claustrophobia. Suboptimal heart rate on the exercise stress echocardiogram but no overt findings on the available data. Coronary CTA of the noted but not pursued the patient due to cost. We had a long discussion as to the next step and as he has got absolutely no angina or any symptoms symptoms, we decided to just keep him on medical therapy. He will reach out if any concerning symptoms. Advised him to check lipids. He remains on aspirin, beta-blockers and statins. In the past LDL was quite controlled and LDL 45 mg/dL; triglycerides 36 mg/dL. In 2019 - 54 mg/dL. In 2021- 77 mg/dL. (2) Nonrheumatic aortic valve regurgitation: Code(s): I35.1 - Nonrheumatic aortic (valve) insufficiency Category: Medical Plan: Echocardiogram with [id number] aortic regurgitation. Can be monitored periodically. (3) Non-rheumatic aortic stenosis: Code(s): I35.0 - Nonrheumatic aortic (valve) stenosis Category: Medical Plan: In the echocardiogram, moderate aortic valve calcification with mild stenosis. Plan Discussion NotesI discussed with the patient the importance of monitoring his cholesterol levels and the need for updated blood work. Patient was informed and verbally consented to the use of an ambient scribe for clinic note documentation during this visit. Coding Level of Care Code Est Pt Level 4 (71397) Diagnoses Atherosclerotic cardiovascular disease I25.10 Nonrheumatic aortic valve regurgitation I35.1 Non-rheumatic aortic stenosis I35.0
--- OUTSIDE RECORDS SUMMARY | 2025-02-03 11:26 | XMS_ITS | Encounter Summary ---
Author Organization [employer] Address [address] [facility] 7t [place] [address] Care Team Providers Care Supervisor Kennel Name Role Phone Samira Marshall DO Primary Care Provider + [phone] Reason for Visit * Reason Onset Date Comments Nurse Triage 11/13/2024 Encounter Details Date Type Department Care Team ([facility] Contact Info) Description 11/13/2024 Telephone [facility] MEDICINE [address] [place], [place] [phone] Samira Marshall DO [address] [place], [place] [phone] Nurse Triage Social History Tobacco Use Types Packs/Day Years [...] encounter Miscellaneous Notes * Telephone Encounter - Rosalba Cole RN - 11/13/2024 11:19 AM EDT TC placed to pt. Pt agrees to r/s appt. From 11/12/23 (no- show) and 07/29/24 (provider out) to 11/19/24. Pt.'s biggest concern for appt. Is the R sided back pain and also to have BP checked, as he does not have a BP monitor at home and has not had BP rx in over a month and can not get more due to no insurance Pt. Declines any s/sx high BP aside from feeling more winded than usual than climbing stairs to 3rd fl apt. Pt. Is aware he will need to sign self pay form if attending appt with no insurance, he declines seeing insurance enrollment as he states he already did and they advised any insurance he would be eligible for would come with a monthly cost, and he only has 100 dollars/ month from [employer] after rent. * Telephone Encounter - Charity Sanders RN - 11/13/2024 10:25 AM EDT Called pt. He states that he has not seen his PCP x 7 months. Pt. States that he had an Echocardiogram and was told it was abnormal. supposed to do a CT scan Pt. Concerned about BP and also has rightsided back pain that affects his walking. that he has been concerned about that is on and off. Pt. Has been trying to get in to see PCP he states for last 7 months and has been having to pay out of po cket because he currently has no insurance. Pt rides a bike and states he cannot come into office today to be seen due to the rain. Pt. States he is willing to pay out of pocket and stages My got a new job and we fell out of the bracket to receive [employer] health and I cannot afford to pay 1700 dollars a month for insurance.Pt states that Mily is supposed to be helping him to try to figure something out but, he states at this point he needs to see PCP. Pt. Wants this note to go directly toPCP and have her team look into schedule to see where pt. Can be put into PCP schedule. I also qued3 meds that pt. States he is out of and needs refills on. * Telephone Encounter - Matias De La Vega - 11/13/2024 9:46 AM EDT Symptom: Lethargic (Tired) Outcome: Schedule an urgent appointment (within 4 hours) or talk to a nurse or provider soon Reason: Getting worse Please contact pt at [phone] documented in this encounter Plan of Treatment Not on file documented as of this encounter Visit Diagnoses Diagnosis Chronic neck and back pain documented in this encounter Additional Health Concerns Assessment Noted Time PHQ-9 Depression Total Score: 0 10/11/19 23 11:03 AM EDT documented as of this encounter Care Teams Supervisor Kennel Relationship Specialty Start Date End Date Samira Marshall DO [address] [place] [id number] PCP - General Family Medicine 07/12/21 documented as of this encounter
== END 2025-02-03 10:49 | disposition home or self-care (01) ==
LOC: HO.HCS 10:24
PROVIDERS: Visit Provider Internal Medicine
DX: I25.10 Atherosclerotic heart disease of native coronary artery without angina pectoris (principal); I35.1 Nonrheumatic aortic (valve) insufficiency; I35.0 Nonrheumatic aortic (valve) stenosis
CPT/HCPCS: 99214

== ENCOUNTER → 2025-02-03 10:23 | Outpatient (BNVA) | payer MEDICARE, SELFPAY | PROVIDERS: Visit Provider Internal Medicine | DX: I25.10 Atherosclerotic heart disease of native coronary artery without angina pectoris (principal); I35.1 Nonrheumatic aortic (valve) insufficiency; I35.0 Nonrheumatic aortic (valve) stenosis | CPT/HCPCS: 99212 ==